=== PATIENT | female | born 1965 | race Caucasian/White ===

== ENCOUNTER → 2018-02-19 | Outpatient (CLI) | payer SELFPAY ==
[~2018-02-19] MED LIST: GADOBUTROL 15 MMOL/15 ML (GADAVIST) VIAL IV ONE
[2018-02-19 12:28] LABS: BUN/CREATININE RATIO 7; CREATININE SERUM 0.87 MG/DL (0.60-1.30); GFR ESTIMATED > 60
--- NOTE | 2018-02-19 14:03 | Diagnostic Imaging Report ---
PROCEDURE: MRI lumbar spine. TECHNIQUE: Multiplanar, multisequence MRI of the lumbar spine was performed without contrast. INDICATION: Fall with left-sided low back pain and injury. No prior studies are available for comparison. FINDINGS: Curvature and alignment of the lumbar spine is normal. Vertebral body heights are maintained. The marrow signal intensity is unremarkable. No fracture or geographic marrow lesion is seen. There is fairly normal height and hydration to the lumbar discs apart from some desiccation at L5-S1 compatible with degenerative disc disease. The conus is unremarkable at the L1-L2 level. T12-L1: No central canal or neuroforaminal stenosis is identified. L1-L2: There is wide-based midline disc bulge; however, no resultant central canal stenosis is seen. The neuroforamina are widely patent. L2-L3: Unremarkable. L3-L4: Unremarkable. L4-L5: There are degenerative facet changes and ligamentous thickening noted. Central canal remains patent. No neuroforaminal stenosis is seen. L5-S1: There is a wide-based midline disc bulge. No significant central canal stenosis is seen, however. Neuroforamina are patent bilaterally. There may be very mild narrowing of the lateral recesses bilaterally. Paraspinous tissues are unremarkable. IMPRESSION: Lower lumbar spondylosis and facet arthropathy, as described. There is disc bulging at multiple levels. No significant central canal stenosis is seen. There does appear to be some mild lateral recess narrowing bilaterally at L5-S1. Dictated by: Dictated on workstation # [id number]
--- NOTE | 2018-02-19 14:24 | Diagnostic Imaging Report ---
PROCEDURE: MR imaging of the brain with and without contrast. TECHNIQUE: Multiplanar, multisequence MR imaging of the brain was performed with and without contrast. INDICATION: Severe headache and dizziness. No prior studies are available for comparison. FINDINGS: The ventricles and sulci are within normal limits. No acute intra-axial or extra-axial hemorrhage is detected. No mass effect or midline shift is detected. No diffusion restriction is identified to suggest acute ischemia. The normal expected flow voids within the carotid siphons are seen. No abnormal enhancement is identified. The corpus callosum is unremarkable. The sella and parasellar structures are unremarkable. IMPRESSION: Unremarkable pre and postcontrast MRI of the brain. Dictated by: Dictated on workstation # [id number]
== END ==
LOC: RAD 11:58
PROVIDERS: ATTEND Family Medicine
DX: M48.07 Spinal stenosis, lumbosacral region (principal); M47.816 Spondylosis without myelopathy or radiculopathy, lumbar region; M51.26 Other intervertebral disc displacement, lumbar region; M51.27 Other intervertebral disc displacement, lumbosacral region; R51 Headache; R26.89 Other abnormalities of gait and mobility; W19.XXXA Unspecified fall, initial encounter
CPT/HCPCS: 36415; 70553; 72148; 82565; 84520

== ENCOUNTER → 2018-10-04 | Outpatient (CLI) | payer OTHER | LOC: CARD 13:32 | PROVIDERS: ATTEND Internal Medicine Cardiovascular Disease | DX: R07.89 Other chest pain (principal); I10 Essential (primary) hypertension; R42 Dizziness and giddiness; I08.1 Rheumatic disorders of both mitral and tricuspid valves | CPT/HCPCS: 93306 ==

== ENCOUNTER → 2018-10-05 | Outpatient (CLI) | payer OTHER ==
--- NOTE | 2018-10-06 13:04 | Diagnostic Imaging Report ---
INDICATION: Routine screening. COMPARISON: 11/01/2010. TECHNIQUE: 2D and 3D bilateral screening mammography was performed with CAD. FINDINGS: Scattered fibroglandular densities are identified bilaterally. Benign calcifications are identified bilaterally. The circumscribed benign nodule in the upper outer left breast appears stable. No new mass or malignant appearing microcalcifications are seen. The axillae are unremarkable. IMPRESSION: No mammographic features suspicious for malignancy are identified. ACR BI-RADS Category 2: Benign findings. Result letter will be mailed to the patient. Note: At least 10% of breast cancer is not imaged by mammography. Dictated by: Dictated on workstation # [id number]
== END ==
LOC: RAD 09:49
PROVIDERS: ATTEND Family Medicine
DX: Z12.31 Encounter for screening mammogram for malignant neoplasm of breast (principal)
CPT/HCPCS: 77067

== ENCOUNTER → 2018-10-05 | Outpatient (CLI) | payer OTHER ==
--- NOTE | 2018-10-05 15:09 | Diagnostic Imaging Report ---
INDICATION: Osteopenia postmenopausal screening assessment COMPARISON: None FINDINGS: AP Spine L1-L4: [BMD (g/cm2): 1.047] [T-Score: -1.3] [Z-Score: -1.8] [BMD Previous: N/A] [BMD % Change: N/A] LT Hip Neck: [BMD (g/cm2): 0.785] [T-Score: -1.8] [Z-Score: -1.6] LT Hip Total: [BMD (g/cm2):09.17] [T-Score:-0.7] [Z-Score: -1.0] [BMD Previous: N/A] [BMD % Change: N/A] RT Hip Neck: [BMD (g/cm2):0.785] [T-Score:-1.8] [Z-Score:-1.6] RT Hip Total: [BMD (g/cm2):0.863] [T-score:-1.1] [Z-Score:-1.4] [BMD Previous:N/A] [BMD % Change:N/A] *Indicates significant change from prior examination based on 95% confidence level. World Health Organization criteria for BMD interpretation classify patients as Normal (T-score at or above -1.0), Osteopenic (T-score between -1.0 and -2.5) or Osteoporotic (T-score at or below -2.5). LIMITATIONS AND MODIFICATION: None. FRACTURE RISK (FRAX SCORE): The ten year probability of (%): Major Osteoporotic Fracture: [5.5] Hip Fracture: [0.9] IMPRESSION: 1. Osteopenia (Low bone mass). 2. Baseline examination. 3. See below National Osteoporosis Foundation guidelines on when to potentially initiate pharmacologic therapy. Based on the National Osteoporosis Foundation Guidelines, pharmacologic treatment should be initiated in any of the following, unless clinical conditions suggest otherwise: * Any patient with prior fragility fracture of the hip or vertebrae. A spine fracture indicates 5X risk for subsequent spine fracture and 2X risk for subsequent hip fracture. * Osteoporosis (T-score <-2.5). * Postmenopausal women and men age 50 and older with low bone mass/osteopenia (T-score between -1.0 and -2.5) by DXA and 10-year major osteoporotic fracture greater than 20% or a 10-year probability of hip fracture greater than 3%. These fracture risks are supplied above in the FRAX score, if applicable. * Clinician judgement and/or patient preferences may indicate treatment for people with 10-year fracture probabilities above or below these levels. Dictated by: Dictated on workstation # [id number]
== END ==
LOC: RAD 09:44
PROVIDERS: ATTEND Family Medicine
DX: Z13.820 Encounter for screening for osteoporosis (principal); M85.89 Other specified disorders of bone density and structure, multiple sites; Z78.0 Asymptomatic menopausal state
CPT/HCPCS: 77080

== ENCOUNTER → 2021-11-26 | Outpatient (CLI) | payer SELFPAY ==
--- NOTE | 2021-11-26 14:11 | Diagnostic Imaging Report ---
INDICATION: Cough. Time of Exam: 12:00 PM Correlation is made with prior chest 11/06/2015. Finding: The heart size is normal. The pulmonary vascularity is unremarkable. The lungs are clear. No infiltrate, effusion or pneumothorax is detected. Impression: No acute cardiopulmonary process is detected. Dictated by: Dictated on workstation # [id number]
== END ==
LOC: RAD FS 11:52
PROVIDERS: ATTEND Nurse Practitioner Family
DX: R05.3 Chronic cough (principal)
CPT/HCPCS: 71046

== ENCOUNTER 2022-05-10 14:11 | Emergency (ER) | payer SELFPAY ==
[~2022-05-10] VITALS: Ht 154.9 cm; Wt 119.5 kg
[2022-05-10] MEDS ORDERED: LACTATED RINGERS 1,000 ML IV STA (14:39)
[2022-05-10] MEDS ORDERED: MECLIZINE 25 MG (ANTIVERT) TAB PO ONE (14:45)
--- NOTE | 2022-05-10 14:45 | ED Neurological Problem ---
General Chief Complaint: Head/Cervical Problems Stated Complaint: BERNARDO; NEAR SYNCOPE; NAUSEA Source: patient, RN/MD Exam Limitations: no limitations History of Present Illness Date Seen by Provider: May 10, 2022 Time Seen by Provider: 14:14 Initial Comments 56-year-old female with past medical history of hypertension, hyperlipidemia, and tobacco use coming in due to a few seconds of a headache on the left side of her head followed by vertigo-like symptoms that lasted roughly 45 minutes. Has been ambulatory even during those symptoms. Went to an urgent care and was referred here. Denies any ringing in her ears or recent illness. Denies having the symptoms before. Denies any chest pain, palpitations, shortness of breath, fever, nausea, vomiting, current headache, neck stiffness, weakness, numbness, current vision changes, dysuria, diarrhea, or any other concerns. She states she feels like her tongue is dry and she feels dehydrated otherwise. Denies any prior history of TIA or stroke. Denies any cardiac history or history of A. fib. Of note, she states she has bad sciatica, and seeing specialist soon. She states she took a couple CBD Gummies a couple days ago to help with this Allergies and Home Medications Allergies Coded Allergies: No Known Drug Allergies (Unverified , 02/19/18) Patient Home Medication List Home Medication List Reviewed: Yes Review of Systems Review of Systems Constitutional: No fever Eyes: Other (Vertigo) Ears, Nose, Mouth, Throat: no symptoms reported Respiratory: no symptoms reported Cardiovascular: no symptoms reported Gastrointestinal: no symptoms reported Genitourinary: no symptoms reported Musculoskeletal: no symptoms reported Skin: no symptoms reported Psychiatric/Neurological: See HPI Endocrine: No Symptoms Reported Hematologic/Lymphatic: No Symptoms Reported All Other Systems Reviewed Negative Unless Noted: Yes Past Xwkpigs-Nbbbng-Gysrbd Hx Patient Social History Tobacco Use?: Yes Tobacco type used: Cigarettes Past Medical History Surgeries: Yes Gallbladder, Hysterectomy Physical Exam Vital Signs Vital Signs - First Documented 05/10/22 14:36 Temp 36.7 Pulse 96 Resp 15 B/P (MAP) 150/90 (110) O2 Delivery Room Air Capillary Refill : Height, Weight, BMI Height: '" Weight: lbs. oz. kg; BMI Method: General Appearance: WD/WN, no apparent distress HEENT: PERRL/EOMI, pharynx normal, other (Lateral gaze nystagmus when looking left which is fatigable. 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, no motor/sensory deficits, alert, normal mood/affect, oriented x 3 Crainal Nerves: normal hearing, normal speech, PERRL, other (Normal gait, normal vslyzm-un-egjx, normal sfuj-om-quzz, normal speech and hearing, test of skew was normal, head impulse test was normal) Coordination/Gait: normal finger to nose, normal gait Motor/Sensory: no motor deficit, no sensory deficit, no pronator drift Skin: normal color, warm/dry Lymphatic: no adenopathy Stroke Onset of Symptoms Date of Onset of Symptoms: May 10, 2022 Time of Symptom Onset: 13:20 Onset of Symptoms: Yes NIH Stroke Scale Assessment Select: Initial Level of Consciousness: 0=Alert (0), Level of Consciousness- Questions: 0=Answers both month/age (0), LOC Commands: 0=Performs both tasks (0), Gaze: Normal (0), Visual Samuels: 0=No visual loss (0), Facial Movement (Facial Paresis): 0=Normal symmetrical mnt (0), Motor Function-Arms Right: 0=No drift (0), Motor Function-Arms Left: 0=No drift (0), Motor Function-Legs Right: 0=No drift (0), Motor Function-Legs Left: 0=No drift (0), Limb Ataxia: 0=Absent (0), Sensory: 0=Normal:no loss (0), Best Language: 0=No aphasia (0), Dysarthria: 0=Normal (0), Extinction & Inattention: 0=No abnormality (0), Total: 0 Stroke Thrombolytic Exclusion TPA Contraindication: Yes IV - TPa Received IV - TPa Procedure Performed?: No Progress/Results/Core Measures Results/Orders Lab Results Laboratory Tests Test 05/10/22 14:49 Range/Units White Blood Count 10.6 4.3-11.0 10^3/uL Red Blood Count 3.96 3.80-5.11 10^6/uL Hemoglobin 12.3 11.5-16.0 g/dL Hematocrit 37 35-52 % Mean Corpuscular Volume 93 80-99 fL Mean Corpuscular Hemoglobin 31 25-34 pg Mean Corpuscular Hemoglobin Concent 33 32-36 g/dL Red Cell Distribution Width 12.4 10.0-14.5 % Platelet Count 213 130-400 10^3/uL Mean Platelet Volume 9.5 9.0-12.2 fL Immature Granulocyte % (Auto) 0 % Neutrophils (%) (Auto) 63 42-75 % Lymphocytes (%) (Auto) 28 12-44 % Monocytes (%) (Auto) 6 0-12 % Eosinophils (%) (Auto) 2 0-10 % Basophils (%) (Auto) 0 0-10 % Neutrophils # (Auto) 6.6 1.8-7.8 10^3/uL Lymphocytes # (Auto) 3.0 1.0-4.0 10^3/uL Monocytes # (Auto) 0.6 0.0-1.0 10^3/uL Eosinophils # (Auto) 0.3 0.0-0.3 10^3/uL Basophils # (Auto) 0.0 0.0-0.1 10^3/uL Immature Granulocyte # (Auto) 0.0 0.0-0.1 10^3/uL Erythrocyte Sedimentation Rate 46 H 0-30 MM/HR Prothrombin Time 12.2 12.2-14.7 SEC INR Comment 0.9 0.8-1.4 Activated Partial Thromboplast Time 25 24-35 SEC Sodium Level 137 135-145 MMOL/L Potassium Level 3.7 3.6-5.0 MMOL/L Chloride Level 102 98-107 MMOL/L Carbon Dioxide Level 23 21-32 MMOL/L Anion Gap 12 5-14 MMOL/L Blood Urea Nitrogen 7 7-18 MG/DL Creatinine 0.82 0.60-1.30 MG/DL Estimat Glomerular Filtration Rate 84 BUN/Creatinine Ratio 9 Glucose Level 148 H 70-105 MG/DL Calcium Level 9.0 8.5-10.1 MG/DL Corrected Calcium 9.3 8.5-10.1 MG/DL Magnesium Level 1.8 1.6-2.4 MG/DL Total Bilirubin 0.4 0.1-1.0 MG/DL Aspartate Amino Transf (AST/SGOT) 21 5-34 U/L Alanine Aminotransferase (ALT/SGPT) 22 0-55 U/L Alkaline Phosphatase 136 40-136 U/L Troponin I < 0.30 <0.30 NG/ML Total Protein 6.7 6.4-8.2 GM/DL Albumin 3.6 3.2-4.5 GM/DL My Orders Orders - KASI IRBY MD Ct Head Wo (05/10/22 14:39) Cbc With Automated Diff (05/10/22 14:39) Comprehensive Metabolic Panel (05/10/22 14:39) Erythrocyte Sedimentation Rate (05/10/22 14:39) Magnesium (05/10/22 14:39) Protime With Inr (05/10/22 14:39) Partial Thromboplastin Time (05/10/22 14:39) Troponin I Fs (05/10/22 14:39) Ed Iv/Invasive Line Start (05/10/22 14:39) Ekg Tracing (05/10/22 14:39) Monitor-Rhythm Ecg Trace Only (05/10/22 14:39) Lactated Ringers (Lr 1000 Ml Iv Solution (05/10/22 14:39) Meclizine Tablet (Antivert Tablet) (05/10/22 14:45) Medications Given in ED Current Medications Medications Dose Ordered Sig/Mela Route Start Time Stop Time Status Last Admin Dose Admin Meclizine HCl 25 mg ONCE ONCE PO 05/10/22 14:45 05/10/22 14:46 DC 05/10/22 14:56 25 MG Vital Signs/I&O 05/10/22 14:36 Temp 36.7 Pulse 96 Resp 15 B/P (MAP) 150/90 (110) O2 Delivery Room Air Progress Progress Note : Progress Note 56-year-old female with above history coming in due to dizziness. ABCs were intact and vitals were stable on presentation. Physical exam reassuring including a normal neuro exam with an NIH of 0. She is not showing any signs of posterior stroke at this time. Symptoms down the vertiginous and they sounded very short in duration. She does look dry on exam. An IV was placed and she was given a bolus of IV fluids as well as meclizine. CT head with no acute changes. Labs essentially unremarkable as well. Patient is at her baseline and I believe stable for discharge with outpatient follow-up. She was sent home with strict return precautions. Initial ECG Impression Date: May 10, 2022 Initial ECG Impression Time: 14:48 Initial ECG Rate: 89 Initial ECG Rhythm: Normal Sinus Comment Narrow QRS, normal axis, no significant ST changes or TWI Diagnostic Imaging Diagonstic Imaging: CT (head) Comments [facility] [place] [place], [place] NAME: ROSHNI CARLTON [facility] REC#: [id number] PT STATUS: REG ER : 1965 PHYSICIAN: KASI IRBY MD ADMIT DATE: 05/10/22/ER FS Draft Date of Exam:05/10/22 CT HEAD WO Clinical indication: Patient with pain in forehead, dizziness and blurred vision x 10 minutes. Exam: Axial CT scan of the brain without IV contrast with coronal and sagittal reformatted images. Auto Exposure Controls were utilized during the CT exam to meet ALARA standards for radiation dose reduction. Comparison: MRI of the brain with and without contrast dated 02/19/2018. Findings: There is no evidence of acute cerebral infarct, intracranial hemorrhage, or gross mass effect. The brain parenchymal volume appears appropriate for patient's age. There is normal paiz-white matter distinction. There is no significant midline shift or herniation. There is no evidence of hydrocephalus. The basal cisterns are unremarkable. The skull, extracranial soft tissue, and orbits are unremarkable. The paranasal sinuses are unremarkable. Temporal bones show no significant abnormality. Impression: There is no evidence of acute intracranial process. Dictated on workstation # [id number] Dict: 05/10/22 1511 Trans: 05/10/22 1517 [facility] [id number] Interpreted by: FRANCISCO SAPP MD Electronically signed by: Departure Impression Primary Impression: Vertigo Disposition: 01 HOME, SELF-CARE Condition: Stable Departure-Patient Inst. Decision time for Depature: 15:45 Referrals: JOHNATHAN SOSA MD (PCP) Primary Care Physician Patient Instructions: Dizziness, Adult ED Add. Discharge Instructions: The symptoms you are having are consistent with vertigo. Try the medicine that we are prescribing and drink plenty of fluids when you have these symptoms. If you ever have weakness we cannot move 1 side of her body, numbness or you cannot feel 1 side of your body, then I would want you to follow back up in the ER as soon as possible. Otherwise, please follow-up with your regular doctor to discuss the symptoms you had today. Scripts Meclizine HCl (Meclizine HCl) 25 Mg Tablet 25 MG PO BID PRN for VERTIGO for 14 Days, #28 TAB Prov: KASI IRBY MD 05/10/22 Work/School Note: Work Release Form Date Seen in the Emergency Department: May 10, 2022 Return to Work: May 11, 2022 Restrictions: No Restrictions KASI IRBY MD May 10, 2022 14:45
[2022-05-10 15:00] VITALS: BP 146/84
[2022-05-10 15:00] LABS: BASOPHILS % (AUTO) 0 % (0-10); EOSINOPHILS # (AUTO) 0.3 10^3/uL (0.0-0.3); EOSINOPHILS % (AUTO) 2 % (0-10); HEMATOCRIT 37 % (35-52); HEMOGLOBIN 12.3 g/dL (11.5-16.0); LYMPHOCYTES % (AUTO) 28 % (12-44); MEAN CORPUSCULAR HEMOGLOBIN 31 pg (25-34); MEAN CORPUSCULAR HGB CONC 33 g/dL (32-36); MEAN CORPUSCULAR VOLUME 93 fL (80-99); MEAN PLATELET VOLUME 9.5 fL (9.0-12.2); MONOCYTES # (AUTO) 0.6 10^3/uL (0.0-1.0); MONOCYTES % (AUTO) 6 % (0-12); NEUTROPHILS # (AUTO) 6.6 10^3/uL (1.8-7.8); NEUTROPHILS % (AUTO) 63 % (42-75); PLATELET COUNT 213 10^3/uL (130-400); WHITE BLOOD COUNT 10.6 10^3/uL (4.3-11.0)
[2022-05-10 15:12] LABS: INR 0.9 (0.8-1.4); PROTHROMBIN TIME PATIENT 12.2 SEC (12.2-14.7)
[2022-05-10 15:19] LABS: CHLORIDE 102 MMOL/L (98-107); ERYTHROCYTE SEDIMENTATION RATE 46 MM/HR (0-30); POTASSIUM 3.7 MMOL/L (3.6-5.0); SODIUM 137 MMOL/L (135-145)
--- NOTE | 2022-05-10 15:19 | Diagnostic Imaging Report ---
Clinical indication: Patient with pain in forehead, dizziness and blurred vision x 10 minutes. Exam: Axial CT scan of the brain without IV contrast with coronal and sagittal reformatted images. Auto Exposure Controls were utilized during the CT exam to meet ALARA standards for radiation dose reduction. Comparison: MRI of the brain with and without contrast dated 02/19/2018. Findings: There is no evidence of acute cerebral infarct, intracranial hemorrhage, or gross mass effect. The brain parenchymal volume appears appropriate for patient's age. There is normal paiz-white matter distinction. There is no significant midline shift or herniation. There is no evidence of hydrocephalus. The basal cisterns are unremarkable. The skull, extracranial soft tissue, and orbits are unremarkable. The paranasal sinuses are unremarkable. Temporal bones show no significant abnormality. Impression: There is no evidence of acute intracranial process. Dictated by: Dictated on workstation # [id number]
[2022-05-10 15:20] LABS: ALANINE AMINOTRANSFERASE 22 U/L (0-55); ALBUMIN 3.6 GM/DL (3.2-4.5); ALKALINE PHOSPHATASE 136 U/L (40-136); BILIRUBIN,TOTAL 0.4 MG/DL (0.1-1.0); BUN/CREATININE RATIO 9; CARBON DIOXIDE 23 MMOL/L (21-32); CREATININE SERUM 0.82 MG/DL (0.60-1.30); GFR ESTIMATED 84; GLUCOSE 148 MG/DL (70-105); MAGNESIUM 1.8 MG/DL (1.6-2.4); TOTAL PROTEIN 6.7 GM/DL (6.4-8.2)
[2022-05-10] MEDS ORDERED: MECL-149 PO (15:40)
== END 2022-05-10 15:50 | disposition home or self-care (01) ==
LOC: EDUNIT# 14:11 → ER FS 14:12
DX: R42 Dizziness and giddiness (principal); Z28.310 Unvaccinated for COVID-19
CPT/HCPCS: 36415; 70450; 80053; 83735; 84484; 85025; 85610; 85652; 85730; 93005; 93041

== ENCOUNTER 2023-02-11 06:25 | Outpatient (CLI) | payer OTHER ==
[~2023-02-11] VITALS: Ht 154.9 cm; Wt 95.7 kg
[~2023-02-11 06:25] MED LIST changes: -GADOBUTROL 15 MMOL/15 ML (GADAVIST) VIAL IV ONE; +MECL-149 PO
[2023-02-11] MEDS ORDERED: BUDE10.2 IH (17:48)
[2023-02-11] MEDS ORDERED: DULO60CA7 PO (17:48)
[2023-02-11] MEDS ORDERED: LIRA0.6P SQ (17:48)
[2023-02-11] MEDS ORDERED: ATOR20TA66 PO (17:48)
[2023-02-11] MEDS ORDERED: QUET100T PO (17:48)
[2023-02-11] MEDS ORDERED: LOSA100T58 PO (17:48)
[2023-02-11] MEDS ORDERED: TRM50T PO (17:48)
[2023-02-11] MEDS ORDERED: ACHD5005 PO (17:48)
[2023-02-11] MEDS ORDERED: TIZA4CAP8 PO (17:48)
[2023-02-11] MEDS ORDERED: RT-ALBUINH INH (17:48)
[2023-02-11] MEDS ORDERED: POLY17PO6 PO (17:48)
[2023-02-11] MEDS ORDERED: MELO10CA3 PO (17:48)
[2023-02-11] MEDS ORDERED: TRZ50T PO (17:48)
== END 2023-02-11 17:59 | disposition home or self-care (01) ==
LOC: PREOP 06:25
PROVIDERS: ATTEND Surgery
DX: Z01.818 Encounter for other preprocedural examination (principal)

== ENCOUNTER 2023-02-16 09:33 | Day surgery (SDC) | payer OTHER ==
[~2023-02-16] VITALS: Ht 154.9 cm; Wt 95.7 kg
[~2023-02-16 09:33] MED LIST changes: +ACHD5005 PO; +ATOR20TA66 PO; +BUDE10.2 IH; +DULO60CA7 PO; +LIRA0.6P SQ; +LOSA100T58 PO; +MELO10CA3 PO; +POLY17PO6 PO; +QUET100T PO; +RT-ALBUINH INH; +TIZA4CAP8 PO; +TRM50T PO; +TRZ50T PO
[2023-02-16] MEDS ORDERED: LACTATED RINGERS 1,000 ML IV STA (09:43)
[2023-02-16] MEDS ORDERED: HURRICAINE EXT TUBE (BENZOCAINE) XX PRN (09:45)
--- NOTE | 2023-02-16 10:16 | Progress Note-Pre Operative ---
Pre-Operative Progress Note Date of Available H&P: Feb 03, 2023 Date H&P Reviewed: Feb 16, 2023 Time H&P Reviewed: 10:14 History & Physical: H&P Reviewed, Patient Examed, No changes noted Pre-Operative Diagnosis: Epigastric pain, Screening JOB LIMA DO Feb 16, 2023 10:16
[2023-02-16 10:18] VITALS: BP 111/84
[2023-02-16] MEDS ORDERED: PROPOFOL INJECTION 50 ML IV ONE (11:41)
[2023-02-16] MEDS ORDERED: MIDAZOLAM INJ 2 MG/2 ML VIAL ONE (11:41)
--- NOTE | 2023-02-16 12:24 | Progress Note-Post Operative ---
Post-Operative Progess Note Surgeon (s)/Radio Operator Ground (s) Surgeon JOB LIMA DO Radio Operator Ground: Kenn Ostnewjason, MSIII Pre-Operative Diagnosis Epigastric pain, Screening Post-Operative Diagnosis Gastritis with bleed Hiatal hernia Polyps Diverticula int hemorrhoids melanosis coli Procedure & Operative Findings Date of Procedure 02/16/23 Procedure Performed/Findings EGD with biopsy Colonoscopy with snare polypectomy PROCEDURE NOTE: After informed consent was obtained, the patient was brought to the endoscopy suite, placed in bed in left lateral decubitus position. She was administered IV sedation by the HANDWRITING EXPERT who then monitored vitals the entire time, heart rate, blood pressure and pulse ox and the scope was inserted down the mouth through the esophagus into the stomach. On the way down, noted some mild esophagitis, took a picture, pushed into the stomach and noted small blood clots and gastritis. Pushed past the antrum into the duodenum; duodenum looked good. Pulled back and did a biopsy of the antrum, a biopsy of the body and then retro- flexed the scope. I saw hiatal hernia, took a picture of this and then pulled the scope into the GE junction and then did a biopsy of the GE junction. Pushed the scope back into the stomach, suctioned all the air out of the stomach. At this point pulled the scope up the esophagus and out the mouth. Switched camera, switched gloves, went down below and started the colonoscopy. Pushed all the way to about 150 cm and pushed into the cecum, took a picture of appendiceal orifice and noted the ileocecal valve. On the way in I noted some diverticula. Then slowly withdrew the scope insufflating to look circumferentially at the choudhury starting in the cecum, up the ascending colon to the hepatic flexure, then down the transverse colon to the splenic flexure, into the descending colon and down into the sigmoid. Through here I saw what looked like melanosis coli and then into the rectum, where I found a polyp and removed it with the snare. Finally, into the rectal vault and retroflexed the scope; took a picture of the internal hemorrhoids. The patient tolerated the procedure and she recovered in the endoscopy suite. Recommended for repeat colonoscopy in 5 years Anesthesia Type IV sedation by HANDWRITING EXPERT Estimated Blood Loss Estimated blood loss (mL): scant Specimens/Packing Specimens Removed antral bx body of stomach bx GE jxn bx Rectal polyp JOB LIMA DO Feb 16, 2023 12:24
[2023-02-16 12:25] VITALS: BP 132/69
--- NOTE | 2023-02-16 12:25 | Endoscopy Discharge Instruct ---
Endo Procedure/Findings Findings 1.: Gastritis (with bleed) 2.: Hiatal Hernia 3.: Polyp 4.: Diverticulosis, Internal Hemorrhoids Discharge Instructions - Activity: You might feel a little sleepy until tomorrow. This is due to the medicine you received to relax you. Until tomorrow, you should: NOT drive a car, operate machinery or power tools. NOT drink any alcoholic beverages. NOT make any important decisions or sign importortant papers. Do not return to work until tomorrow, unless otherwise instructed. Resume previous activities tomorrow. Diet: Start by taking liquids. If you tolerate liquids, advance to solid food. 1.: EGD in 3 years 2.: Colonscopy in 5 years Notify Physician - If you experience excessive bleeding, unusual abdominal pain, fever, or chest pain, contact your doctor immediately. Follow-Up: Other Follow up in my office in one week JOB LIMA DO Feb 16, 2023 12:25
[2023-02-16 12:30] VITALS: BP 134/66
[2023-02-16 13:03] VITALS: BP 134/66
--- NOTE | 2023-02-16 13:05 | Anesthesia-General Post-Op ---
MAC Patient Condition Mental Status/LOC: Same as Preop Cardiovascular: Satisfactory Nausea/Vomiting: Absent Respiratory: Satisfactory Pain: Controlled Complications: Absent Post Op Complications Complications None Follow Up Care/Instructions Patient Instructions None needed. Anesthesiology Discharge Order Discharge Order Patient is doing well, no complaints, stable vital signs, no apparent adverse anesthesia problems. No complications reported per nursing. BILLY BAIRD CRNA Feb 16, 2023 13:05
== END 2023-02-16 13:03 | disposition home or self-care (01) ==
LOC: ENDO 09:33
PROVIDERS: ATTEND Surgery
DX: Z12.11 Encounter for screening for malignant neoplasm of colon (principal); D12.8 Benign neoplasm of rectum; K57.30 Diverticulosis of large intestine without perforation or abscess without bleeding; K64.8 Other hemorrhoids; K63.89 Other specified diseases of intestine; K29.71 Gastritis, unspecified, with bleeding; K44.9 Diaphragmatic hernia without obstruction or gangrene; K20.90 Esophagitis, unspecified without bleeding; K31.89 Other diseases of stomach and duodenum; Z28.310 Unvaccinated for COVID-19; G47.33 Obstructive sleep apnea (adult) (pediatric); F17.210 Nicotine dependence, cigarettes, uncomplicated; E66.9 Obesity, unspecified; Z68.39 Body mass index [BMI] 39.0-39.9, adult

== ENCOUNTER 2023-03-27 08:31 | Emergency (ER) | payer OTHER ==
[~2023-03-27] VITALS: Ht 154.9 cm; Wt 96.6 kg
[~2023-03-27 08:31] MED LIST changes: +ACET-2267 PO; +ALPR0.5T PO; +ALPR0.5T7 PO; +ASPI-1238 PO; +CHOL100048 PO; +CLOP75TA28 PO; +CYAN-41 PO; +ELDE350C PO; +ESTR42.511 VG; +ISOS30TA82 PO; +MELA10TA2 PO; +MELO15TA39 PO; +MTP25TSR PO; +NICO-533 TD; +QUET100T33 PO; +ROSU20TA73 PO; +TIZA-186 PO; +TRAM50TA3 PO
[2023-03-27 08:57] LABS: BASOPHILS % (AUTO) 1 % (0-10); EOSINOPHILS # (AUTO) 0.2 10^3/uL (0.0-0.3); EOSINOPHILS % (AUTO) 3 % (0-10); HEMATOCRIT 36 % (35-52); HEMOGLOBIN 11.7 g/dL (11.5-16.0); LYMPHOCYTES # (AUTO) 2.5 10^3/uL (1.0-4.0); LYMPHOCYTES % (AUTO) 29 % (12-44); MEAN CORPUSCULAR HEMOGLOBIN 31 pg (25-34); MEAN CORPUSCULAR HGB CONC 33 g/dL (32-36); MEAN CORPUSCULAR VOLUME 94 fL (80-99); MEAN PLATELET VOLUME 10.1 fL (9.0-12.2); MONOCYTES # (AUTO) 0.5 10^3/uL (0.0-1.0); MONOCYTES % (AUTO) 6 % (0-12); NEUTROPHILS # (AUTO) 5.3 10^3/uL (1.8-7.8); NEUTROPHILS % (AUTO) 61 % (42-75); PLATELET COUNT 248 10^3/uL (130-400); WHITE BLOOD COUNT 8.6 10^3/uL (4.3-11.0)
[2023-03-27] MEDS ORDERED: LIDOCAINE 2% VISCOUS 15 ML UDC PO ONE (09:00)
[2023-03-27] MEDS ORDERED: ONDANSETRON INJECTION 4 MG/2 ML (SDV) IVP ONE (09:00)
[2023-03-27] MEDS ORDERED: ASPIRIN 81 MG CHEWABLE TABLET PO ONE (09:00)
[2023-03-27] MEDS ORDERED: ANTACID SUSPENSION 30 ML UDC PO ONE (09:00)
[2023-03-27] MEDS ORDERED: LACTATED RINGERS 1,000 ML 1,000 ML IV ONE (09:15)
--- NOTE | 2023-03-27 09:15 | ED Chest Pain ---
General Chief Complaint: Cardiac/General Problems Stated Complaint: SOA/ABD PAIN Nursing Triage Note: Patient c/o Lt. sided chest pain that started last night with shortness of breath, nausea, and epigastric pain. Patient states her epigastric pain is worse today and denies any chest pain currently. Patient denies any vomiting, but states she has had dry heaves. Patient denies any fevers, dizziness, pain into her back or down her Lt. arm. Patient denies anything making her pain worse or better. Patient states she had cardiac stents placed on March 19, 2023. Source: patient, old records Exam Limitations: no limitations History of Present Illness Date Seen by Provider: Mar 27, 2023 Time Seen by Provider: 08:36 Initial Comments This 57-year-old woman presents to the emergency room via private vehicle with complaints of chest pain that started yesterday evening. Pain is in the left chest and radiates into the left arm. She has had associated shortness of breath and some mild cough and congestion which she attributes to "allergies.". She has not identified any alleviating or exacerbating factors. She complains of some epigastric pain as well with tenderness in the epigastric region on exam. She has been afebrile. She has had nausea with some dry heaving. She was recently admitted to [facility] in [place] on March 19 and underwent cardiac cath with a single stent placed as well as angioplasty. She has been on aspirin and Plavix since then. She took aspirin 162 mg this morning but has not yet taken her Plavix. She quit smoking last week. Her primary care provider is Virginia Daveis at [facility] in [place], and Dr. Craig is her primary exploitation analyst. 1006 - Patient later elaborates that the epigastric portion of her pain has actually been present for months. She had EGD and colonoscopy performed with Dr Chano Lima in February. That report was reviewed. Postprocedural diagnoses included gastritis with bleed, hiatal hernia, polyps, diverticuli, internal hemorrhoids, and melanosis coli. Pathology reports were also reviewed. Pathology of the stomach was positive for reactive gastropathy without any H. pylori organisms observed. Polypectomy specimen was a tubular adenoma. Patient states history of remote hiatal hernia repair in 2011. Despite this gastric history, she is not presently on any antiacid therapy. Allergies and Home Medications Allergies Coded Allergies: Penicillins (Unverified Allergy, Unknown, 02/11/23) Sulfa (Sulfonamide Antibiotics) (Unverified Allergy, Unknown, 02/11/23) pregabalin (Unverified Allergy, Unknown, 02/11/23) succinylcholine (Unverified Allergy, Unknown, 02/11/23) Patient Home Medication List Home Medication List Reviewed: Yes Acetaminophen (Tylenol Extra Strength) 500 Mg Tablet, 1,000 MG PO DAILY, (Reported) Entered as Reported by: MIQUEL LAI on 03/20/231125 Albuterol Sulfate (Ventolin Hfa) 1 Puff Puff, 2 PUFF INH Q6H PRN for SHORTNESS OF BREATH, (Reported) Entered as Reported by: SHASHANK QUINONES on 02/11/231747 Alprazolam (Alprazolam) 0.5 Mg Tablet, 0.5 MG PO BID PRN for ANXIETY, (Reported) Entered as Reported by: MIQUEL LAI on 03/20/231125 Aspirin (Aspirin EC) 81 Mg Tablet.dr, 81 MG PO DAILY Prescribed by: Cheryl Hendrickson on 03/21/231128 Budesonide/Formoterol Fumarate (Symbicort 160-4.5 Mcg Inhaler) 160 Mcg-4.5 Mcg/Actuation Hfa.aer.ad, 2 PUFF IH DAILY, (Reported) Entered as Reported by: SHASHANK QUINONES on 02/11/231747 Cholecalciferol (Vitamin D3) (Vitamin D3) 25 Mcg (1000 Unit) Capsule, 25 MCG PO DAILY, (Reported) Entered as Reported by: MIQUEL LAI on 03/20/231125 Clopidogrel Bisulfate (Clopidogrel) 75 Mg Tablet, 75 MG PO DAILY Prescribed by: Cheryl Hendrickson on 03/21/231128 Cyanocobalamin (Vitamin B-12) (Vitamin B-12) 1,000 Mcg Tablet, 1,000 MCG PO DAILY, (Reported) Entered as Reported by: MIQUEL LAI on 03/20/231125 Duloxetine HCl (Cymbalta) 60 Mg Capsule.dr, 120 MG PO DAILY, (Reported) Entered as Reported by: SHASHANK QUINONES on 02/11/231747 Elderberry Fruit (Elderberry) 350 Mg Capsule, 350 MG PO DAILY, (Reported) Entered as Reported by: MIQUEL LAI on 03/20/231125 Estradiol (Estradiol) 0.01 % Cream.appl, 1 GM VG 3X WEEKLY, (Reported) Entered as Reported by: MIQUEL LAI on 03/20/231125 Famotidine (Pepcid) 20 Mg Tablet, 20 MG PO BID Prescribed by: LAURA PRECIADO on 03/27/23 115 Hydrocodone/Acetaminophen (Hydrocodone-Acetamin 5-325 mg) 5 Mg-325 Mg Tablet, 2 EA PO HS, (Reported) Entered as Reported by: SHASHANK QUINONES on 02/11/231747 Isosorbide Mononitrate (Isosorbide Mononitrate ER) 30 Mg Tab.er.24h, 15 MG PO DAILY Prescribed by: Cheryl Hendrickson on 03/21/231128 Liraglutide (Victoza 2-Daniel) 0.6 Mg/0.1 Ml (18 Mg/3 Ml) Pen.injctr, 3 MG SQ DAILY, (Reported) Entered as Reported by: SHASHANK QUINONES on 02/11/231747 Melatonin (Melatonin) 10 Mg Tablet, 10 MG PO HS PRN for SLEEP, (Reported) Entered as Reported by: MIQUEL LAI on 03/20/231125 Meloxicam (Meloxicam) 15 Mg Tablet, 15 MG PO DAILY, (Reported) Entered as Reported by: MIQUEL LAI on 03/20/231125 Metoprolol Succinate (Metoprolol Succinate) 25 Mg Tab.er.24h, 12.5 MG PO DAILY Prescribed by: Cheryl Hendrickson on 03/21/231128 Nicotine (Nicotine Patch) 21-14-7MG Patch.dysq, 14 MG TD DAILY Prescribed by: Cheryl Hendrickson on 03/21/231128 Pantoprazole Sodium (Protonix) 40 Mg Tablet.dr, 40 MG PO DAILY Prescribed by: LAURA PRECIADO on 03/27/23 115 Polyethylene Glycol 3350 (Miralax) 17 Gram Powd.pack, 17 GM PO DAILY, (Reported) Entered as Reported by: SHASHANK QUINONES on 02/11/231747 Quetiapine Fumarate (Quetiapine Fumarate) 100 Mg Tablet, 100 MG PO HS, (Reported) Entered as Reported by: MIQUEL LAI on 03/20/23 112 Rosuvastatin Calcium (Rosuvastatin Calcium) 20 Mg Tablet, 20 MG PO HS Prescribed by: Cheryl Hendrickson on 03/21/23 112 Tizanidine HCl (Tizanidine HCl) 4 Mg Tablet, 8 MG PO HS, (Reported) Entered as Reported by: MIQUEL LAI on 03/20/23 112 Tramadol HCl (Tramadol HCl) 50 Mg Tablet, 100 MG PO DAILY, (Reported) Entered as Reported by: SHASHANK QUINONES on 02/11/23 174 Tramadol HCl (Tramadol HCl) 50 Mg Tablet, 100 MG PO 1300 PRN for PAIN-MODERATE (5-7), (Reported) Entered as Reported by: MIQUEL LAI on 03/20/231125 Trazodone HCl (Trazodone HCl) 50 Mg Tablet, 100 MG PO HS, (Reported) Entered as Reported by: MIQUEL LAI on 03/20/23 112 Discontinued Medications Alprazolam (Xanax) 0.5 Mg Tablet, 0.5 MG PO PRN Discontinued Reason: Duplicate Order Prescribed by: PAMELA STALLINGS on 03/19/23 162 Atorvastatin Calcium (Atorvastatin Calcium) 20 Mg Tablet, 20 MG PO HS, (Reported) Entered as Reported by: SHASHANK QUINONES on 02/11/231747 Losartan Potassium (Losartan Potassium) 100 Mg Tablet, 100 MG PO HS, (Reported) Entered as Reported by: SHASHANK QUINONES on 02/11/231747 Meloxicam, Submicronized (Meloxicam) 10 Mg Capsule, 15 MG PO DAILY Discontinued Reason: Duplicate Order Prescribed by: PAMELA STALLINGS on 03/19/23 162 Quetiapine Fumarate (Seroquel) 100 Mg Tablet, 100 MG PO DAILY, (Reported) Discontinued Reason: Duplicate Order Entered as Reported by: SHASHANK QUINONES on 02/11/231747 Tizanidine HCl (Tizanidine HCl) 4 Mg Capsule, 4 MG PO TID Discontinued Reason: Duplicate Order Prescribed by: PAMELA STALLINGS on 03/19/231622 Trazodone HCl (Trazodone HCl) 50 Mg Tablet, 50-100 MG PO HS Discontinued Reason: Duplicate Order Prescribed by: PAMELA STALLINGS on 9/14/23 1623 Review of Systems Review of Systems Constitutional: no symptoms reported EENTM: No Symptoms Reported Respiratory: See HPI Cardiovascular: See HPI Gastrointestinal: See HPI Genitourinary: No Symptoms Reported Musculoskeletal: no symptoms reported Skin: no symptoms reported Psychiatric/Neurological: No Symptoms Reported Endocrine: No Symptoms Reported Hematologic/Lymphatic: No Symptoms Reported Past Hbzkhag-Nierjw-Opkahr Hx Patient Social History Tobacco Use?: Yes Tobacco type used: Cigarettes Use of E-Cig and/or Vaping dev: No Substance use?: No Alcohol Use?: No Pt feels they are or have been: No Immunizations Up To Date Influenza Vaccine Up-to-Date: No; Not Current First/Initial COVID19 Vaccinat: NO Second COVID19 Vaccination Rodrigo: NO Third COVID19 Vaccination Date: NO Seasonal Allergies Seasonal Allergies: Yes Past Medical History Surgery/Hospitalization HX: Hypertension, hyperlipidemia, COPD, obstructive sleep apnea, fibromyalgia, depression, cholecystectomy, hysterectomy, section Surgeries: Yes (HIATAL HERNIA/HEART CATH) Abdominal (EGD and colonoscopy with bxs 2022), Section, Gallbladder, Hysterectomy Respiratory: Yes (OBSTRUCTIVE SLEEP APNEA) Asthma, Sleep Apnea, COPD Currently Using CPAP: No Cardiac: Yes ("WEEPY MITRAL VALVE") High Cholesterol, Hypertension Neurological: No : No [facility] History: Hysterectomy Genitourinary: No Gastrointestinal: Yes (gastritis, melanosis coli) Gastrointestinal Bleed (bleeding gastritis), Chronic Constipation, Diverticulosis, Hemorrhoids (internal), Polyps, Hiatal Hernia Musculoskeletal: Yes Fibromyalgia Endocrine: Yes (PRE-DIABETIC) Cancer: No Psychosocial: Yes Depression Integumentary: No Blood Disorders: No Family Medical History No Pertinent Family Hx Physical Exam Vital Signs Vital Signs - First Documented 03/27/23 08:34 Temp 36.7 Pulse 79 Resp 16 B/P (MAP) 131/99 (110) O2 Delivery Room Air Capillary Refill : Less Than 3 Seconds Height, Weight, BMI Height: '" Weight: lbs. oz. kg; 40.00 BMI Method: General Appearance: No Apparent Distress, WD/WN, Obese HEENT: PERRL/EOMI, Normal ENT Inspection, Other (Mucous membranes dry) Neck: Normal Inspection; No JVD Respiratory: Chest Non Tender, Lungs Clear, Normal Breath Sounds, No Accessory Muscle Use, No Respiratory Distress Cardiovascular: Regular Rate, Rhythm, No Edema, No Murmur Gastrointestinal: Soft; No Distended; Tenderness (Epigastric) Extremity: Normal Inspection, Non Tender, No Pedal Edema Neurologic/Psychiatric: Alert, Oriented x3, No Motor/Sensory Deficits, Normal Mood/Affect Skin: Normal Color, Warm/Dry Progress/Results/Core Measures Results/Orders Lab Results Laboratory Tests Test 03/27/23 08:48 03/27/23 10:50 Range/Units White Blood Count 8.6 4.3-11.0 10^3/uL Red Blood Count 3.77 L 3.80-5.11 10^6/uL Hemoglobin 11.7 11.5-16.0 g/dL Hematocrit 36 35-52 % Mean Corpuscular Volume 94 80-99 fL Mean Corpuscular Hemoglobin 31 25-34 pg Mean Corpuscular Hemoglobin Concent 33 32-36 g/dL Red Cell Distribution Width 12.1 10.0-14.5 % Platelet Count 248 130-400 10^3/uL Mean Platelet Volume 10.1 9.0-12.2 fL Immature Granulocyte % (Auto) 0 % Neutrophils (%) (Auto) 61 42-75 % Lymphocytes (%) (Auto) 29 12-44 % Monocytes (%) (Auto) 6 0-12 % Eosinophils (%) (Auto) 3 0-10 % Basophils (%) (Auto) 1 0-10 % Neutrophils # (Auto) 5.3 1.8-7.8 10^3/uL Lymphocytes # (Auto) 2.5 1.0-4.0 10^3/uL Monocytes # (Auto) 0.5 0.0-1.0 10^3/uL Eosinophils # (Auto) 0.2 0.0-0.3 10^3/uL Basophils # (Auto) 0.0 0.0-0.1 10^3/uL Immature Granulocyte # (Auto) 0.0 0.0-0.1 10^3/uL Prothrombin Time 12.5 12.2-14.7 SEC INR Comment 0.9 0.8-1.4 Activated Partial Thromboplast Time 24 24-35 SEC Sodium Level 139 135-145 MMOL/L Potassium Level 4.0 3.6-5.0 MMOL/L Chloride Level 103 98-107 MMOL/L Carbon Dioxide Level 26 21-32 MMOL/L Anion Gap 10 5-14 MMOL/L Blood Urea Nitrogen 10 7-18 MG/DL Creatinine 0.95 0.60-1.30 MG/DL Estimat Glomerular Filtration Rate 70 BUN/Creatinine Ratio 11 Glucose Level 103 70-105 MG/DL Calcium Level 10.0 8.5-10.1 MG/DL Corrected Calcium 10.0 8.5-10.1 MG/DL Magnesium Level 1.9 1.6-2.4 MG/DL Total Bilirubin 0.3 0.1-1.0 MG/DL Aspartate Amino Transf (AST/SGOT) 27 5-34 U/L Alanine Aminotransferase (ALT/SGPT) 26 0-55 U/L Alkaline Phosphatase 133 40-136 U/L Myoglobin 27.6 <58.0 NG/ML Troponin I < 0.30 < 0.30 <0.30 NG/ML Total Protein 6.8 6.4-8.2 GM/DL Albumin 4.0 3.2-4.5 GM/DL Lipase 24 8-78 U/L My Orders Orders - LAURA BRUNO MD Cbc And Automated Diff (03/27/23 08:49) Magnesium (03/27/23 08:49) Ekg Tracing (03/27/23 08:49) Comprehensive Metabolic Panel (03/27/23 08:49) Myoglobin Serum (03/27/23 08:49) Protime With Inr (03/27/23 08:49) Partial Thromboplastin Time (03/27/23 08:49) O2 (03/27/23 08:49) Monitor-Rhythm Ecg Trace Only (03/27/23 08:49) Lipid Panel (03/28/23 06:00) Ed Iv/Invasive Line Start (03/27/23 08:49) Lipase (03/27/23 08:49) Troponin I Lianne (03/27/23 08:49) Aspirin Chewable Tablet (Aspirin Chewabl (03/27/23 09:00) Ondansetron Injection (Ondansetron Inj (03/27/23 09:00) Lidocaine 2% Viscous 15 Ml (Xylocaine Vi (03/27/23 09:00) Antacid Suspension (Antacid Suspension (03/27/23 09:00) Covid 19 Inhouse Test (03/27/23 08:52) Influenza A And B By Pcr (03/27/23 08:52) Lactated Ringers 1,000 Ml (Lactated Ring (03/27/23 09:15) Chest 1 View Ap/Pa Only (03/27/23 09:27) Pantoprazole Injection (Pantoprazole Inj (03/27/23 10:00) Troponin I Fs (03/27/23 10:50) Ct Faby Chest/Noang Abd-Pelv W (03/27/23 10:10) Iohexol Injection (Omnipaque 350 Mg/Ml 1 (03/27/23 10:30) Received Contrast (Hold Metformin- Contr (03/27/23 10:30) Ns (Ivpb) 100 Ml (Sodium Chloride 0.9% 1 (03/27/23 10:30) Medications Given in ED Current Medications Medications Dose Ordered Sig/Mela Route Start Time Stop Time Status Last Admin Dose Admin Al Hydrox/Mg Hydrox/Simethicone 30 ml ONCE ONCE PO 03/27/23 09:00 03/27/23 09:01 DC 03/27/23 09:04 30 ML Aspirin 162 mg ONCE ONCE PO 03/27/23 09:00 03/27/23 09:01 DC 03/27/23 09:05 162 MG Iohexol 100 ml ONCE ONCE IV 03/27/23 10:30 03/27/23 10:31 DC 03/27/23 10:38 100 ML Lactated Ringer's 1,000 ml @ 0 mls/hr Q0M ONCE IV 03/27/23 09:15 03/27/23 09:16 DC 03/27/23 09:11 0 MLS/HR Lidocaine HCl 15 ml ONCE ONCE PO 03/27/23 09:00 03/27/23 09:01 DC 03/27/23 09:04 15 ML Ondansetron HCl 8 mg ONCE ONCE IVP 03/27/23 09:00 03/27/23 09:01 DC 03/27/23 09:04 8 MG Pantoprazole 40 mg ONCE ONCE IV 03/27/23 10:00 03/27/23 10:01 DC 03/27/23 10:01 40 MG Sodium Chloride 100 ml ONCE ONCE IV 03/27/23 10:30 03/27/23 10:31 DC 03/27/23 10:38 100 ML Vital Signs/I&O 03/27/23 03/27/23 08:34 09:08 Temp 36.7 Pulse 79 Resp 16 B/P (MAP) 131/99 (110) O2 Delivery Room Air Room Air Blood Pressure Mean: 110 Progress Progress Note #1: Time: 09:16 Progress Note Patient was interviewed and examined upon arrival. EKG demonstrated no ischemic changes by my interpretation. Labs are being processed. Chest x-ray is pending. She has been given the balance of aspirin with an additional 162 mg. Zofran is being given for nausea. A GI cocktail is being given as a trial treatment for her chest and epigastric pain. Swabs for influenza and covid 19 were ordered, but patient declined the tests. Progress Note #2: Time: 10:08 Progress Note Chest, back, and arm pain resolved with GI cocktail treatment. However, the epigastric pain and tenderness persists. She is beader tender on repeat exam. Labs have been reviewed in their entirety and interpreted by me. CBC was unremarkable. Lipase was negative. CMP, magnesium, and troponin were unremarkable. Chest x-ray was unremarkable by my interpretation and demonstrated no adverse changes on radiologist's report as reviewed below. Patient elaborated on her GI history, and endoscopy and pathology reports were reviewed. Protonix is being administered. A 2-hour troponin is pending and will be drawn at 1050. Patient desires further evaluation for her abdominal pain. CT imaging will be obtained. Progress Note #3: Time: 11:40 Progress Note Repeat troponin was negative. CT angiogram of the chest with not angiogram CT of the abdomen pelvis was viewed by me. By my interpretation there were no pathologic findings with the lungs, pulmonary arteries, or aorta. The abdominal CT did not demonstrate any acute surgical findings but she was noted to have significant stomach contents despite not eating anything today. Radiologist's report was reviewed as below. Patient has not been on any antacid therapy. In the short-term, I am suggesting that she receive dual therapy with PPI and H2 shanon. She should follow-up with her primary care provider to determine how to proceed further for treatment of her gastritis. I discussed the situation with Dr. Quach, exploitation analyst on-call for Dr. Craig. From a cardiology perspective he is agreeable to discharge based on the information provided to him. ACS is very unlikely given patient's compliance with her antiplatelet therapy, negative serial troponins for this episode of chest pain that started last night, and normal EKG findings. Additionally, chest pain resolved with GI cocktail. See discharge instructions for further discussion. Initial ECG Impression Date: Mar 27, 2023 Initial ECG Impression Time: 08:43 Initial ECG Rate: 77 Initial ECG Rhythm: Normal Sinus Initial ECG Intervals: Normal Initial ECG Impression: Normal Comment Sinus rhythm with no ST elevation or depression. First-degree AV block with NE interval of 240 ms. Otherwise no abnormal intervals or axis deviation. Diagnostic Imaging Diagonstic Imaging: Xray Plain Films/CT/US/NM/MRI: chest Comments NAME: ROSHNI CARLTON WebNotes [facility] REC#: [id number] PT STATUS: REG ER : 1965 PHYSICIAN: LAURA BRUNO MD ADMIT DATE: 03/27/23/ER FS Draft Date of Exam:03/27/23 CHEST 1 VIEW AP/PA ONLY CLINICAL INDICATION: Patient with chest pain. EXAM: Portable chest x-ray upright view. COMPARISON: Chest x-ray dated 03/18/2023. FINDINGS: Lungs/pleura: Lungs are clear. There is no pneumothorax. There is no pleural effusion. Mediastinum: Unremarkable. Pulmonary vasculature: Unremarkable. Heart: Stable mild cardiomegaly. Bones/extrathoracic soft tissue: Unremarkable. IMPRESSION: 1: There is no radiographic evidence of acute cardiopulmonary process. 2: Stable mild cardiomegaly with no significant pulmonary vascular congestion. Dictated on workstation # [id number] Dict: 03/27/23 0938 Trans: 03/27/23 0941 [id number] Interpreted by: FRANCISCO SAPP MD Diagonstic Imaging: CT Plain Films/CT/US/NM/MRI: chest, abdomen, pelvis Comments NAME: ROSHNI CARLTON WebNotes [facility] REC#: [id number] PT STATUS: REG ER : 1965 PHYSICIAN: LAURA BRUNO MD ADMIT DATE: 03/27/23/ER FS Draft Date of Exam:03/27/23 CT FABY CHEST/NOANG ABD-PELV W INDICATION: Chest pain, abdominal pain, SOA CTA chest, abdomen and pelvis Thin axial sections through the chest, abdomen and pelvis are obtained following intravenous contrast bolus. Multiplanar MIP images were reconstructed and reviewed. All CT scans use one or more of the following dose optimizing techniques: automated exposure control, MA and/or KvP adjustment based on patient size and exam type or iterative reconstruction. COMPARISON: None. FINDINGS: CTA chest: No abnormal intraluminal filling defect is seen within the pulmonary arteries to the first subsegmental division. Thoracic aorta is normal in course and caliber. By NASCET criteria, there is no focal significant stenosis. There is no evidence of dissection nor aneurysm. Heart size is within normal limits. There is no large pericardial effusion. No pathologically enlarged or morphologically abnormal adenopathy is seen within the mediastinum, raymon, nor axilla. Lungs are clear. There is no focal consolidation, large effusion, nor pneumothorax. No suspicious pulmonary nodules or masses are seen. Osseous structures show age-related degenerative changes. No lytic or blastic bony lesions are seen. CT ABDOMEN: Normal appendix is identified. Small bowel loops are nondilated. Kidneys, adrenal glands, spleen, pancreas, and liver have a normal CT appearance. There is no loculated fluid collection, free fluid, nor free air. No abnormal adenopathy is seen. Osseous structures show no acute abnormalities. CT PELVIS: Urinary bladder is grossly unremarkable. No calculi are seen within the urinary bladder. There is no loculated fluid collection, free fluid, or free air. No abnormal adenopathy is seen. Osseous structures show no acute abnormalities. IMPRESSION: 1. No acute vascular abnormality of the chest. 2. No other acute abnormality is seen within the chest, abdomen, or pelvis. Dictated on workstation # [id number] Dict: 03/27/23 1047 Trans: 03/27/23 1059 [id number] Interpreted by: LYUDMILA LESTER MD Departure Impression Primary Impression: Chest pain Qualified Codes: R07.9 - Chest pain, unspecified Additional Impressions: Epigastric pain Gastritis Qualified Codes: K29.70 - Gastritis, unspecified, without bleeding History of coronary artery disease Disposition: 01 HOME, SELF-CARE Condition: Improved Departure-Patient Inst. Decision time for Depature: 11:44 Referrals: VIRGINIA DAVIES APRN (PCP/Family) Primary Care Physician Patient Instructions: Acid Reflux and GERD in Adults (DC), Chest Pain, Gastritis Add. Discharge Instructions: Adhere to a noncarbonated clear liquid diet for the remainder of today to allow your GI tract to rest. Start dual antiplatelet therapy with Pepcid (famotidine) and Protonix (pantoprazole) as prescribed. Avoid the following: Eating large meals, eating close to bedtime, caffeine, carbonation, chocolate, citrus fruits and juices, tomato products, alcohol, tobacco, spicy foods, fatty/greasy foods, mints, NSAID medications such as ibuprofen or naproxen, and anything else you know irritate your stomach. Sleeping with your head and shoulders elevated will help with gravity work in your favor to prevent acid reflux. Take your medications with food or milk to help protect your stomach. Follow-up with Dr. Lima as well if you continue to have upper abdominal pain after following these instructions for 2 or 3 weeks. Your stomach appeared rather full on the CT scan despite not eating today. This may suggest slow transit of stomach contents through your GI tract. Discussed this with your primary care provider. In general, eat small meals, drink plenty of water, and chew your food thoroughly. Use stool softeners such as Colace or MiraLAX for constipation or prevention of constipation with your pain medication use. Follow-up with Dr. Craig and your primary care provider soon as possible. Please call today or Thursday to schedule the appointments. Return to the emergency room if you have worsening symptoms despite following these instructions, especially if you have recurrent episodes of chest pain. Congratulations on quitting smoking! This is a major step in improving your overall health. Please seek assistance from your primary care provider if you need further help in staying off tobacco or other nicotine products. All discharge instructions reviewed with patient and/or family. Voiced understanding. Scripts Pantoprazole Sodium (Protonix) 40 Mg Tablet. 40 MG PO DAILY, #30 TAB Prov: LAURA BRUNO MD 03/27/23 Famotidine (Pepcid) 20 Mg Tablet 20 MG PO BID, #60 TAB Prov: LAURA BRUNO MD 03/27/23 Copy Copies To 1: SIMÓN CRAIG MD Copies To 2: [facility]/K; JOB LIMA JOSHUA T MD Mar 27, 2023 09:15
[2023-03-27 09:17] LABS: INR 0.9 (0.8-1.4); PROTHROMBIN TIME PATIENT 12.5 SEC (12.2-14.7)
[2023-03-27 09:20] LABS: CARBON DIOXIDE 26 MMOL/L (21-32)
[2023-03-27 09:21] LABS: ALANINE AMINOTRANSFERASE 26 U/L (0-55); ALKALINE PHOSPHATASE 133 U/L (40-136); BILIRUBIN,TOTAL 0.3 MG/DL (0.1-1.0); BUN/CREATININE RATIO 11; CREATININE SERUM 0.95 MG/DL (0.60-1.30); GFR ESTIMATED 70; GLUCOSE 103 MG/DL (70-105); LIPASE 24 U/L (8-78); MAGNESIUM 1.9 MG/DL (1.6-2.4); TOTAL PROTEIN 6.8 GM/DL (6.4-8.2)
[2023-03-27 09:25] LABS: CHLORIDE 103 MMOL/L (98-107); SODIUM 139 MMOL/L (135-145)
--- NOTE | 2023-03-27 09:41 | Diagnostic Imaging Report ---
CLINICAL INDICATION: Patient with chest pain. EXAM: Portable chest x-ray upright view. COMPARISON: Chest x-ray dated 03/18/2023. FINDINGS: Lungs/pleura: Lungs are clear. There is no pneumothorax. There is no pleural effusion. Mediastinum: Unremarkable. Pulmonary vasculature: Unremarkable. Heart: Stable mild cardiomegaly. Bones/extrathoracic soft tissue: Unremarkable. IMPRESSION: 1: There is no radiographic evidence of acute cardiopulmonary process. 2: Stable mild cardiomegaly with no significant pulmonary vascular congestion. Dictated by: Dictated on workstation # [id number]
[2023-03-27] MEDS ORDERED: PANTOPRAZOLE INJECTION 40 MG VIAL IV ONE (10:00)
[2023-03-27] MEDS ORDERED: IOHEXOL 350 MG/ML 100 ML (OMNIPAQUE 350) VIAL IV ONE (10:30)
[2023-03-27] MEDS ORDERED: HOLD METFORMIN - RECEIVED CONTRAST 20 ML VIAL IV SCH (10:30)
[2023-03-27] MEDS ORDERED: NS 100 ML (IVPB) BAG IV ONE (10:30)
--- NOTE | 2023-03-27 11:00 | Diagnostic Imaging Report ---
INDICATION: Chest pain, abdominal pain, SOA CTA chest, abdomen and pelvis Thin axial sections through the chest, abdomen and pelvis are obtained following intravenous contrast bolus. Multiplanar MIP images were reconstructed and reviewed. All CT scans use one or more of the following dose optimizing techniques: automated exposure control, MA and/or KvP adjustment based on patient size and exam type or iterative reconstruction. COMPARISON: None. FINDINGS: CTA chest: No abnormal intraluminal filling defect is seen within the pulmonary arteries to the first subsegmental division. Thoracic aorta is normal in course and caliber. By NASCET criteria, there is no focal significant stenosis. There is no evidence of dissection nor aneurysm. Heart size is within normal limits. There is no large pericardial effusion. No pathologically enlarged or morphologically abnormal adenopathy is seen within the mediastinum, raymon, nor axilla. Lungs are clear. There is no focal consolidation, large effusion, nor pneumothorax. No suspicious pulmonary nodules or masses are seen. Osseous structures show age-related degenerative changes. No lytic or blastic bony lesions are seen. CT ABDOMEN: Normal appendix is identified. Small bowel loops are nondilated. Kidneys, adrenal glands, spleen, pancreas, and liver have a normal CT appearance. There is no loculated fluid collection, free fluid, nor free air. No abnormal adenopathy is seen. Osseous structures show no acute abnormalities. CT PELVIS: Urinary bladder is grossly unremarkable. No calculi are seen within the urinary bladder. There is no loculated fluid collection, free fluid, or free air. No abnormal adenopathy is seen. Osseous structures show no acute abnormalities. IMPRESSION: 1. No acute vascular abnormality of the chest. 2. No other acute abnormality is seen within the chest, abdomen, or pelvis. Dictated by: Dictated on workstation # [id number]
[2023-03-27] MEDS ORDERED: FAMO-119 PO (11:50)
[2023-03-27] MEDS ORDERED: PANT40TA2 PO (11:50)
[2023-03-27 12:06] VITALS: BP 144/84
== END 2023-03-27 12:00 | disposition home or self-care (01) ==
LOC: EDUNIT# 08:31 → ER FS 08:34
DX: K29.70 Gastritis, unspecified, without bleeding (principal); I44.0 Atrioventricular block, first degree; E66.9 Obesity, unspecified; F17.210 Nicotine dependence, cigarettes, uncomplicated; Z86.79 Personal history of other diseases of the circulatory system; Z95.5 Presence of coronary angioplasty implant and graft; Z90.49 Acquired absence of other specified parts of digestive tract; Z68.41 Body mass index [BMI] 40.0-44.9, adult; Z28.310 Unvaccinated for COVID-19
CPT/HCPCS: 36415; 71045; 71275; 74177; 80053; 83690; 83735; 83874; 84484; 85025; 85610; 85730; 93005; 93041; Q9967

== ENCOUNTER 2023-05-20 19:06 | Emergency (ER) | payer OTHER ==
[~2023-05-20 19:06] MED LIST changes: +FAMO-119 PO; -MECL-149 PO; +MECL-291 PO; +PANT40TA2 PO
[2023-05-20 19:21] LABS: BASOPHILS % (AUTO) 0 % (0-10); EOSINOPHILS # (AUTO) 0.3 10^3/uL (0.0-0.3); EOSINOPHILS % (AUTO) 3 % (0-10); HEMATOCRIT 36 % (35-52); HEMOGLOBIN 11.5 g/dL (11.5-16.0); LYMPHOCYTES # (AUTO) 3.3 10^3/uL (1.0-4.0); LYMPHOCYTES % (AUTO) 33 % (12-44); MEAN CORPUSCULAR HEMOGLOBIN 31 pg (25-34); MEAN CORPUSCULAR HGB CONC 32 g/dL (32-36); MEAN CORPUSCULAR VOLUME 96 fL (80-99); MEAN PLATELET VOLUME 9.7 fL (9.0-12.2); MONOCYTES # (AUTO) 0.7 10^3/uL (0.0-1.0); MONOCYTES % (AUTO) 7 % (0-12); NEUTROPHILS # (AUTO) 5.5 10^3/uL (1.8-7.8); NEUTROPHILS % (AUTO) 56 % (42-75); PLATELET COUNT 220 10^3/uL (130-400); WHITE BLOOD COUNT 9.8 10^3/uL (4.3-11.0)
--- NOTE | 2023-05-20 19:28 | ED Chest Pain ---
General Chief Complaint: Chest Pain Stated Complaint: CHEST PAIN, LT SIDE JAW PAIN, SOB, NAUSEA Nursing Triage Note: PT AMB TO RM 8 WITH SPOUSE WITH C/O CP SINCE 1700 THIS EVENING. PT HAS KS 2 MO AGO. PT ALSO C/O NAUSEA AND SOB WITH THE CP Source: patient, old records Exam Limitations: no limitations History of Present Illness Date Seen by Provider: May 20, 2023 Time Seen by Provider: 19:14 Initial Comments Moon is a 57-year-old woman who presents to the emergency room today complaining of chest pain that radiates to her neck and jaw bilaterally starting at about 1730. She has known history of coronary artery disease and had stent placements in March. Dr. Craig is her bilingual loan processor. She notes her blood pressure has been low today with systolic measurements under 100. She has felt dizzy with some lightheadedness and shortness of air. She notes isosorbide dosing was increased 2 weeks ago. She is on aspirin and Plavix and took 81 mg of aspirin before coming to the emergency room. She has tenderness to palpation in the left chest and epigastrium. She notes previously being on Protonix but is not presently using a PPI. She rates her pain as 6.5/10. Allergies and Home Medications Allergies Coded Allergies: Penicillins (Unverified Allergy, Unknown, 02/11/23) Sulfa (Sulfonamide Antibiotics) (Unverified Allergy, Unknown, 02/11/23) pregabalin (Unverified Allergy, Unknown, 02/11/23) succinylcholine (Unverified Allergy, Unknown, 02/11/23) Patient Home Medication List Home Medication List Reviewed: Yes Acetaminophen (Tylenol Extra Strength) 500 Mg Tablet, 1,000 MG PO DAILY, (Reported) Entered as Reported by: MIQUEL LAI on 03/20/23 1126 Albuterol Sulfate (Ventolin Hfa) 1 Puff Puff, 2 PUFF INH Q6H PRN for SHORTNESS OF BREATH, (Reported) Entered as Reported by: SHASHANK QUINONES on 02/11/23 1748 Alprazolam (Alprazolam) 0.5 Mg Tablet, 0.5 MG PO BID PRN for ANXIETY, (Reported) Entered as Reported by: MIQUEL LAI on 03/20/23 1126 Aspirin (Aspirin EC) 81 Mg Tablet.dr, 81 MG PO DAILY Prescribed by: Cheryl Hendrickson on 03/21/231128 Budesonide/Formoterol Fumarate (Symbicort 160-4.5 Mcg Inhaler) 160 Mcg-4.5 Mcg/Actuation Hfa.aer.ad, 2 PUFF IH DAILY, (Reported) Entered as Reported by: SHASHANK QUINONES on 02/11/231747 Cholecalciferol (Vitamin D3) (Vitamin D3) 25 Mcg (1000 Unit) Capsule, 25 MCG PO DAILY, (Reported) Entered as Reported by: MIQUEL LAI on 03/20/231125 Clopidogrel Bisulfate (Clopidogrel) 75 Mg Tablet, 75 MG PO DAILY Prescribed by: Cheryl Hendrickson on 03/21/231128 Cyanocobalamin (Vitamin B-12) (Vitamin B-12) 1,000 Mcg Tablet, 1,000 MCG PO DAILY, (Reported) Entered as Reported by: MIQUEL LAI on 03/20/231125 Duloxetine HCl (Cymbalta) 60 Mg Capsule.dr, 120 MG PO DAILY, (Reported) Entered as Reported by: SHASHANK QUINONES on 02/11/231747 Elderberry Fruit (Elderberry) 350 Mg Capsule, 350 MG PO DAILY, (Reported) Entered as Reported by: MIQUEL LAI on 03/20/231125 Estradiol (Estradiol) 0.01 % Cream.appl, 1 GM VG 3X WEEKLY, (Reported) Entered as Reported by: MIQUEL LAI on 03/20/231125 Famotidine (Pepcid) 20 Mg Tablet, 20 MG PO BID Prescribed by: LAURA PRECIADO on 03/27/23 1150 Hydrocodone/Acetaminophen (Hydrocodone-Acetamin 5-325 mg) 5 Mg-325 Mg Tablet, 2 EA PO HS, (Reported) Entered as Reported by: SHASHANK QUINONES on 02/11/231747 Isosorbide Mononitrate (Isosorbide Mononitrate ER) 30 Mg Tab.er.24h, 15 MG PO DAILY Prescribed by: Cheryl Hendrickson on 03/21/231128 Liraglutide (Victoza 2-Daniel) 0.6 Mg/0.1 Ml (18 Mg/3 Ml) Pen.injctr, 3 MG SQ DAILY, (Reported) Entered as Reported by: SHASHANK QUINONES on 02/11/231747 Melatonin (Melatonin) 10 Mg Tablet, 10 MG PO HS PRN for SLEEP, (Reported) Entered as Reported by: MIQUEL LAI on 03/20/231125 Meloxicam (Meloxicam) 15 Mg Tablet, 15 MG PO DAILY, (Reported) Entered as Reported by: MIQUEL LAI on 03/20/231125 Metoprolol Succinate (Metoprolol Succinate) 25 Mg Tab.er.24h, 12.5 MG PO DAILY Prescribed by: Cheryl Hendrickson on 03/21/231128 Nicotine (Nicotine Patch) 21-14-7MG Patch.dysq, 14 MG TD DAILY Prescribed by: Cheryl Hendrickson on 03/21/231128 Pantoprazole Sodium (Protonix) 40 Mg Tablet.dr, 40 MG PO DAILY Prescribed by: LAURA PRECIADO on 03/27/23 115 Pantoprazole Sodium (Protonix) 40 Mg Tablet.dr, 40 MG PO DAILY Prescribed by: LAURA PRECIADO on 05/20/232205 Polyethylene Glycol 3350 (Miralax) 17 Gram Powd.pack, 17 GM PO DAILY, (Reported) Entered as Reported by: SHASHANK QUINONES on 02/11/231747 Quetiapine Fumarate (Quetiapine Fumarate) 100 Mg Tablet, 100 MG PO HS, (Reported) Entered as Reported by: MIQUEL LAI on 03/20/231125 Rosuvastatin Calcium (Rosuvastatin Calcium) 20 Mg Tablet, 20 MG PO HS Prescribed by: Cheryl Hendrickson on 03/21/231128 Tizanidine HCl (Tizanidine HCl) 4 Mg Tablet, 8 MG PO HS, (Reported) Entered as Reported by: MIQUEL LAI on 03/20/231125 Tramadol HCl (Tramadol HCl) 50 Mg Tablet, 100 MG PO DAILY, (Reported) Entered as Reported by: SHASHANK QUINONES on 02/11/231747 Tramadol HCl (Tramadol HCl) 50 Mg Tablet, 100 MG PO 1300 PRN for PAIN-MODERATE (5-7), (Reported) Entered as Reported by: MIQUEL LAI on 03/20/231125 Trazodone HCl (Trazodone HCl) 50 Mg Tablet, 100 MG PO HS, (Reported) Entered as Reported by: MIQUEL LAI on 03/20/23 1126 Review of Systems Review of Systems Constitutional: no symptoms reported EENTM: No Symptoms Reported Respiratory: See HPI Cardiovascular: See HPI Gastrointestinal: See HPI Genitourinary: No Symptoms Reported Musculoskeletal: no symptoms reported Skin: no symptoms reported Psychiatric/Neurological: No Symptoms Reported Endocrine: No Symptoms Reported Hematologic/Lymphatic: No Symptoms Reported Past Qmbslfw-Iqpspj-Prbbdp Hx Patient Social History Tobacco Use?: No Use of E-Cig and/or Vaping dev: No Substance use?: No Alcohol Use?: No Pt feels they are or have been: No Immunizations Up To Date First/Initial COVID19 Vaccinat: NO Second COVID19 Vaccination Rodrigo: NO Third COVID19 Vaccination Date: NO Seasonal Allergies Seasonal Allergies: Yes Past Medical History Surgery/Hospitalization HX: Hypertension, hyperlipidemia, COPD, obstructive sleep apnea, fibromyalgia,depression, cholecystectomy, hysterectomy, section, STENT X1 Surgeries: Yes (HIATAL HERNIA/HEART CATH) Abdominal, Section, Coronary Stent, Gallbladder, Hysterectomy Respiratory: Yes (OBSTRUCTIVE SLEEP APNEA) Asthma, Sleep Apnea, COPD Currently Using CPAP: No Cardiac: Yes ("WEEPY MITRAL VALVE") Coronary Artery Disease, High Cholesterol, Hypertension Neurological: No CENTERLESS GRINDER History: Hysterectomy Genitourinary: No Gastrointestinal: Yes (gastritis, melanosis coli) Gastrointestinal Bleed, Chronic Constipation, Diverticulosis, Hemorrhoids, Polyps, Hiatal Hernia Musculoskeletal: Yes Fibromyalgia Endocrine: Yes (PRE-DIABETIC) Cancer: No Psychosocial: Yes Depression Integumentary: No Blood Disorders: No Family Medical History No Pertinent Family Hx Physical Exam Vital Signs Vital Signs - First Documented 05/20/23 19:10 Temp 35.6 Pulse 87 Resp 23 B/P (MAP) 105/91 (96) Pulse Ox 97 O2 Delivery Room Air Capillary Refill : Height, Weight, BMI Height: '" Weight: lbs. oz. kg; 40.00 BMI Method: General Appearance: No Apparent Distress, WD/WN HEENT: PERRL/EOMI, Normal ENT Inspection Neck: Normal Inspection; No JVD Respiratory: Lungs Clear, Normal Breath Sounds, No Accessory Muscle Use, No Respiratory Distress, Other (Left anterior chest wall TTP) Cardiovascular: Regular Rate, Rhythm, No Edema, No Gallop, No Murmur Gastrointestinal: Soft; No Distended; Tenderness (epigstric) Extremity: Normal Inspection, Non Tender Neurologic/Psychiatric: Alert, Oriented x3, No Motor/Sensory Deficits, Normal Mood/Affect Skin: Normal Color, Warm/Dry Progress/Results/Core Measures Results/Orders Lab Results Laboratory Tests Test 05/20/23 19:19 05/20/23 19:22 05/20/23 21:21 Range/Units White Blood Count 9.8 4.3-11.0 10^3/uL Red Blood Count 3.74 L 3.80-5.11 10^6/uL Hemoglobin 11.5 11.5-16.0 g/dL Hematocrit 36 35-52 % Mean Corpuscular Volume 96 80-99 fL Mean Corpuscular Hemoglobin 31 25-34 pg Mean Corpuscular Hemoglobin Concent 32 32-36 g/dL Red Cell Distribution Width 11.6 10.0-14.5 % Platelet Count 220 130-400 10^3/uL Mean Platelet Volume 9.7 9.0-12.2 fL Immature Granulocyte % (Auto) 0 % Neutrophils (%) (Auto) 56 42-75 % Lymphocytes (%) (Auto) 33 12-44 % Monocytes (%) (Auto) 7 0-12 % Eosinophils (%) (Auto) 3 0-10 % Basophils (%) (Auto) 0 0-10 % Neutrophils # (Auto) 5.5 1.8-7.8 10^3/uL Lymphocytes # (Auto) 3.3 1.0-4.0 10^3/uL Monocytes # (Auto) 0.7 0.0-1.0 10^3/uL Eosinophils # (Auto) 0.3 0.0-0.3 10^3/uL Basophils # (Auto) 0.0 0.0-0.1 10^3/uL Immature Granulocyte # (Auto) 0.0 0.0-0.1 10^3/uL Prothrombin Time 12.0 L 12.2-14.7 SEC INR Comment 0.9 0.8-1.4 Activated Partial Thromboplast Time 26 24-35 SEC Sodium Level 136 135-145 MMOL/L Potassium Level 4.2 3.6-5.0 MMOL/L Chloride Level 105 98-107 MMOL/L Carbon Dioxide Level 22 21-32 MMOL/L Anion Gap 9 5-14 MMOL/L Blood Urea Nitrogen 10 7-18 MG/DL Creatinine 1.07 0.60-1.30 MG/DL Estimat Glomerular Filtration Rate 61 BUN/Creatinine Ratio 9 Glucose Level 103 70-105 MG/DL Calcium Level 8.8 8.5-10.1 MG/DL Corrected Calcium 8.8 8.5-10.1 MG/DL Magnesium Level 2.1 1.6-2.4 MG/DL Total Bilirubin 0.5 0.1-1.0 MG/DL Aspartate Amino Transf (AST/SGOT) 26 5-34 U/L Alanine Aminotransferase (ALT/SGPT) 16 0-55 U/L Alkaline Phosphatase 92 40-136 U/L Myoglobin 25.5 10.0-92.0 NG/ML Troponin I < 0.028 < 0.028 <0.028 NG/ML Total Protein 7.2 6.4-8.2 GM/DL Albumin 4.0 3.2-4.5 GM/DL Lipase 75 8-78 U/L My Orders Orders - LAURA BRUNO MD Cbc And Automated Diff (05/20/23 19:10) Magnesium (05/20/23 19:10) Chest 1 View, Ap/Pa Only (05/20/23 19:10) Ekg Tracing (05/20/23 19:10) Comprehensive Metabolic Panel (05/20/23 19:10) Myoglobin Serum (05/20/23 19:10) Protime With Inr (05/20/23 19:10) Partial Thromboplastin Time (05/20/23 19:10) O2 (05/20/23 19:10) Monitor-Rhythm Ecg Trace Only (05/20/23 19:10) Ed Iv/Invasive Line Start (05/20/23 19:10) Troponin I Giles (05/20/23 19:10) Ondansetron Injection (Ondansetron Inj (05/20/23 19:30) Lidocaine 2% Viscous 15 Ml (Xylocaine Vi (05/20/23 19:30) Antacid Suspension (Antacid Suspension (05/20/23 19:30) Ns Iv 500 Ml (Ns Iv 500 Ml) (05/20/23 19:30) Lipase (05/20/23 19:20) Pantoprazole Tablet (Pantoprazole Tablet (05/20/23 20:30) Troponin I Lianne (05/20/23 21:30) Iv Push Machine Fastener Ed (05/20/23 ) Medications Given in ED Vital Signs/I&O 05/20/23 05/20/23 19:10 22:13 Temp 35.6 Pulse 87 74 Resp 23 B/P (MAP) 105/91 (96) 130/89 Pulse Ox 97 97 O2 Delivery Room Air Room Air Blood Pressure Mean: 96 Progress Progress Note : Progress Note Patient was interviewed and examined by me. Nitroglycerin was not administered due to patient's marginal blood pressure. Labs were reviewed and interpreted. CBC, CMP, magnesium, troponin, lipase, and coag panels were all normal. Serial troponin was also normal. EKG was negative for ischemia or arrhythmia by my interpretation as noted below. Chest x-ray report was reviewed as noted below. There were no significant acute abnormalities. Because of patient's epigastric tenderness and discontinuation of PPI therapy, patient was treated with a GI cocktail and Zofran. This resolved her pain. Pain did not return prior to discharge. See discharge instructions for further discussion. Initial ECG Impression Date: May 20, 2023 Initial ECG Impression Time: 19:16 Initial ECG Rate: 85 Initial ECG Rhythm: Normal Sinus Initial ECG Intervals: Normal Initial ECG Impression: Normal Comment Normal sinus rhythm with no ST elevation or depression. No abnormal intervals or axis deviation. Diagnostic Imaging Diagonstic Imaging: Xray Plain Films/CT/US/NM/MRI: chest Comments NAME: MOON [facility] REC#: [id number] PT STATUS: REG ER : 1965 PHYSICIAN: LAURA BRUNO MD ADMIT DATE: 05/20/23/ER Signed Date of Exam:05/20/23 CHEST 1 VIEW, AP/PA ONLY PATIENT HISTORY: Chest pain. TECHNIQUE: Single frontal view of the chest. COMPARISON: 03/27/2023. FINDINGS: The lung volumes are normal. No focal consolidation is seen. No large pleural effusion or pneumothorax is seen. The cardiomediastinal silhouette is stable in size and contour. No acute osseous abnormality is seen. IMPRESSION: No acute pulmonary abnormality seen. Dictated by: Dictated on workstation # [id number] Dict: 05/20/231934 Trans: 05/20/232100 [facility] [id number] Interpreted by: OSCAR URBANO MD Electronically signed by: OSCAR URBANO MD 05/20/232100 Departure Impression Primary Impression: Chest pain Qualified Codes: R07.9 - Chest pain, unspecified Additional Impression: Epigastric pain Disposition: HOME, SELF-CARE Condition: Improved Departure-Patient Inst. Decision time for Depature: 22:02 Referrals: VIRGINIA DAVIES APRN (PCP/Family) Primary Care Physician Patient Instructions: Acid reflux (gastroesophageal reflux disease) during , Chest Pain Add. Discharge Instructions: Based on your work-up in the emergency room and response to the "GI cocktail", your pain was likely caused by inflammation of the stomach (gastritis) and/or inflammation of the esophagus) esophagitis. This could be due to several factors including medications you take, diet, acid reflux, etc. Continue taking your usual medications as previously prescribed. Add Protonix (pantoprazole) 40 mg daily back into your medication regimen until you are able to follow-up with your primary care provider. Avoid the following: Eating large meals, eating close to bedtime, caffeine, carbonation, chocolate, citrus fruits and juices, tomato products, tobacco, alcohol, mints, NSAID medications such as ibuprofen or naproxen, spicy foods, fatty/greasy foods, or anything else you know irritate your stomach. If the upper abdominal pain and heartburn becomes persistent and recurrent, you may need further evaluation such as endoscopy (camera scoping of your stomach and esophagus). You may treat acute episodes of pain with Tylenol (acetaminophen) up to 1000 mg every 6 hours as needed. You may also try Tums or generic equivalent. Follow-up with your primary care provider and bilingual loan processor as soon as possible. Return to the emergency room if you have worsening symptoms despite following these instructions. All discharge instructions reviewed with patient and/or family. Voiced understanding. Scripts Pantoprazole Sodium (Protonix) 40 Mg Tablet. 40 MG PO DAILY, #30 TAB Prov: LAURA BRUNO MD 05/20/23 Copy Copies To 1: SIMÓN CRAIG MD Copies To 2: [facility] [place] LAURA BRUNO MD May 20, 2023 19:27
[2023-05-20] MEDS ORDERED: LIDOCAINE 2% VISCOUS 15 ML UDC PO ONE (19:30)
[2023-05-20] MEDS ORDERED: ANTACID SUSPENSION 30 ML UDC PO ONE (19:30)
[2023-05-20] MEDS ORDERED: NS IV 500 ML 500 ML IV ONE (19:30)
[2023-05-20] MEDS ORDERED: ONDANSETRON INJECTION 4 MG/2 ML (SDV) IVP ONE (19:30)
[2023-05-20 19:36] LABS: INR 0.9 (0.8-1.4)
[2023-05-20 19:38] LABS: CALCIUM 8.8 MG/DL (8.5-10.1)
[2023-05-20 19:39] LABS: GLUCOSE 103 MG/DL (70-105); TOTAL PROTEIN 7.2 GM/DL (6.4-8.2)
[2023-05-20 19:40] LABS: CARBON DIOXIDE 22 MMOL/L (21-32)
[2023-05-20 19:41] LABS: BILIRUBIN,TOTAL 0.5 MG/DL (0.1-1.0); CHLORIDE 105 MMOL/L (98-107); POTASSIUM 4.2 MMOL/L (3.6-5.0); SODIUM 136 MMOL/L (135-145)
[2023-05-20 19:42] LABS: ALKALINE PHOSPHATASE 92 U/L (40-136); CREATININE SERUM 1.07 MG/DL (0.60-1.30); GFR ESTIMATED 61
[2023-05-20 19:43] LABS: BUN/CREATININE RATIO 9
[2023-05-20 19:45] LABS: ALANINE AMINOTRANSFERASE 16 U/L (0-55); MAGNESIUM 2.1 MG/DL (1.6-2.4)
--- NOTE | 2023-05-20 19:45 | Diagnostic Imaging Report ---
PATIENT HISTORY: Chest pain. TECHNIQUE: Single frontal view of the chest. COMPARISON: 03/27/2023. FINDINGS: The lung volumes are normal. No focal consolidation is seen. No large pleural effusion or pneumothorax is seen. The cardiomediastinal silhouette is stable in size and contour. No acute osseous abnormality is seen. IMPRESSION: No acute pulmonary abnormality seen. Dictated by: Dictated on workstation # [id number]
[2023-05-20] MEDS ORDERED: PANTOPRAZOLE 40 MG TABLET PO ONE (20:30)
[2023-05-20] MEDS ORDERED: PANT40TA2 PO (22:06)
[2023-05-20 22:13] VITALS: BP 130/89
== END 2023-05-20 22:13 | disposition home or self-care (01) ==
LOC: EDUNIT# 19:06 → ER 19:09
DX: R07.89 Other chest pain (principal); R10.13 Epigastric pain; Z79.02 Long term (current) use of antithrombotics/antiplatelets; Z79.82 Long term (current) use of aspirin
CPT/HCPCS: 36415; 71045; 80053; 83690; 83735; 83874; 84484; 85025; 85610; 85730; 93005; 93041; 96374

== ENCOUNTER 2023-06-06 01:22 | Emergency (ER) | payer OTHER ==
[~2023-06-06] VITALS: Ht 154 cm; Wt 99.4 kg
[2023-06-06 01:35] VITALS: BP 90/62
[2023-06-06 01:36] VITALS: BP 73/47
[2023-06-06] MEDS ORDERED: LACTATED RINGERS 1,000 ML 1,000 ML IV STA (01:42)
--- NOTE | 2023-06-06 01:50 | ED General ---
General Stated Complaint: DIZZY, LOW BP Source of Information: Patient, Old Records Exam Limitations: No Limitations History of Present Illness Date Seen by Provider: Jun 06, 2023 Time Seen by Provider: 01:24 Initial Comments 57yoF with PMH of HTN, DM, CAD coming in due to being light headed and having low blood pressure. She states roughly a month ago her doctor increased her blood pressure medication dosage. She has not felt quite right since then. Specifically, when she stands up, she feels lightheaded. There was worsening tonight, she took her blood pressure at that time, and it was in the 70s systoli c with repeat measurements. She believes she has been drinking fluids. Denies any vomiting, diarrhea, chest pain, shortness of breath, abdominal pain, rash, weakness, numbness, or any other concerns. Allergies and Home Medications Allergies Coded Allergies: Penicillins (Unverified Allergy, Unknown, 02/11/23) Sulfa (Sulfonamide Antibiotics) (Unverified Allergy, Unknown, 02/11/23) pregabalin (Unverified Allergy, Unknown, 02/11/23) succinylcholine (Unverified Allergy, Unknown, 02/11/23) Patient Home Medication List Home Medication List Reviewed: Yes Acetaminophen (Tylenol Extra Strength) 500 Mg Tablet, 1,000 MG PO DAILY, (Reported) Entered as Reported by: MIQUEL LAI on 03/20/23 112 Albuterol Sulfate (Ventolin Hfa) 1 Puff Puff, 2 PUFF INH Q6H PRN for SHORTNESS OF BREATH, (Reported) Entered as Reported by: SHASHANK QUINONES on 02/11/231747 Alprazolam (Alprazolam) 0.5 Mg Tablet, 0.5 MG PO BID PRN for ANXIETY, (Reported) Entered as Reported by: MIQUEL LAI on 03/20/23 112 Aspirin (Aspirin EC) 81 Mg Tablet.dr, 81 MG PO DAILY Prescribed by: Cheryl Hendrickson on 03/21/23 112 Budesonide/Formoterol Fumarate (Symbicort 160-4.5 Mcg Inhaler) 160 Mcg-4.5 Mcg/Actuation Hfa.aer.ad, 2 PUFF IH DAILY, (Reported) Entered as Reported by: SHASHANK QUINONES on 02/11/231747 Cholecalciferol (Vitamin D3) (Vitamin D3) 25 Mcg (1000 Unit) Capsule, 25 MCG PO DAILY, (Reported) Entered as Reported by: MIQUEL LAI on 03/20/231125 Clopidogrel Bisulfate (Clopidogrel) 75 Mg Tablet, 75 MG PO DAILY Prescribed by: Cheryl Hendrickson on 03/21/231128 Cyanocobalamin (Vitamin B-12) (Vitamin B-12) 1,000 Mcg Tablet, 1,000 MCG PO DAILY, (Reported) Entered as Reported by: MIQUEL LAI on 03/20/231125 Duloxetine HCl (Cymbalta) 60 Mg Capsule.dr, 120 MG PO DAILY, (Reported) Entered as Reported by: SHASHANK QUINONES on 02/11/231747 Elderberry Fruit (Elderberry) 350 Mg Capsule, 350 MG PO DAILY, (Reported) Entered as Reported by: MIQUEL LAI on 03/20/231125 Estradiol (Estradiol) 0.01 % Cream.appl, 1 GM VG 3X WEEKLY, (Reported) Entered as Reported by: MIQUEL LAI on 03/20/231125 Famotidine (Pepcid) 20 Mg Tablet, 20 MG PO BID Prescribed by: LAURA PRECIADO on 03/27/23 115 Hydrocodone/Acetaminophen (Hydrocodone-Acetamin 5-325 mg) 5 Mg-325 Mg Tablet, 2 EA PO HS, (Reported) Entered as Reported by: SHASHANK QUINONES on 02/11/231747 Isosorbide Mononitrate (Isosorbide Mononitrate ER) 30 Mg Tab.er.24h, 15 MG PO DAILY Prescribed by: Cheryl Hendrickson on 03/21/231128 Liraglutide (Victoza 2-Daniel) 0.6 Mg/0.1 Ml (18 Mg/3 Ml) Pen.injctr, 3 MG SQ DAILY, (Reported) Entered as Reported by: SHASHANK QUINONES on 02/11/231747 Melatonin (Melatonin) 10 Mg Tablet, 10 MG PO HS PRN for SLEEP, (Reported) Entered as Reported by: MIQUEL LAI on 03/20/231125 Meloxicam (Meloxicam) 15 Mg Tablet, 15 MG PO DAILY, (Reported) Entered as Reported by: MIQUEL LAI on 03/20/231125 Metoprolol Succinate (Metoprolol Succinate) 25 Mg Tab.er.24h, 12.5 MG PO DAILY Prescribed by: Cheryl Hendrickson on 03/21/23 112 Nicotine (Nicotine Patch) 21-14-7MG Patch.dysq, 14 MG TD DAILY Prescribed by: Cheryl Hendrickson on 03/21/23 112 Pantoprazole Sodium (Protonix) 40 Mg Tablet.dr, 40 MG PO DAILY Prescribed by: LAURA PRECIADO on 03/27/23 1150 Pantoprazole Sodium (Protonix) 40 Mg Tablet.dr, 40 MG PO DAILY Prescribed by: LAURA PRECIADO on 05/20/23 220 Polyethylene Glycol 3350 (Miralax) 17 Gram Powd.pack, 17 GM PO DAILY, (Reported) Entered as Reported by: SHASHANK QUINONES on 02/11/23 174 Quetiapine Fumarate (Quetiapine Fumarate) 100 Mg Tablet, 100 MG PO HS, (Reported) Entered as Reported by: MIQUEL LAI on 03/20/231125 Rosuvastatin Calcium (Rosuvastatin Calcium) 20 Mg Tablet, 20 MG PO HS Prescribed by: Cheryl Hendrickson on 03/21/23 112 Tizanidine HCl (Tizanidine HCl) 4 Mg Tablet, 8 MG PO HS, (Reported) Entered as Reported by: MIQUEL LAI on 03/20/231125 Tramadol HCl (Tramadol HCl) 50 Mg Tablet, 100 MG PO DAILY, (Reported) Entered as Reported by: SHASHANK QUINONES on 02/11/231747 Tramadol HCl (Tramadol HCl) 50 Mg Tablet, 100 MG PO 1300 PRN for PAIN-MODERATE (5-7), (Reported) Entered as Reported by: MIQUEL LAI on 03/20/23 112 Trazodone HCl (Trazodone HCl) 50 Mg Tablet, 100 MG PO HS, (Reported) Entered as Reported by: MIQUEL LAI on 03/20/231125 Review of Systems Review of Systems Constitutional: No fever EENTM: no symptoms reported Respiratory: no symptoms reported Cardiovascular: see HPI Gastrointestinal: no symptoms reported Genitourinary: no symptoms reported Musculoskeletal: no symptoms reported Skin: no symptoms reported Psychiatric/Neurological: See HPI Hematologic/Lymphatic: No Symptoms Reported Past [id number] Hx Immunizations Up To Date First/Initial COVID19 Vaccinat: NO Second COVID19 Vaccination Rodrigo: NO Third COVID19 Vaccination Date: NO Seasonal Allergies Seasonal Allergies: Yes Past Medical History Surgery/Hospitalization HX: Hypertension, hyperlipidemia, COPD, obstructive sleep apnea, fibromyalgia,depression, cholecystectomy, hysterectomy, section, STENT X1 Surgeries: Yes (HIATAL HERNIA/HEART CATH) Abdominal, Section, Coronary Stent, Gallbladder, Hysterectomy Respiratory: Yes (OBSTRUCTIVE SLEEP APNEA) Asthma, Sleep Apnea, COPD Currently Using CPAP: No Cardiac: Yes ("WEEPY MITRAL VALVE") Coronary Artery Disease, High Cholesterol, Hypertension Neurological: No FLARE BREAKER History: Hysterectomy Genitourinary: No Gastrointestinal: Yes (gastritis, melanosis coli) Gastrointestinal Bleed, Chronic Constipation, Diverticulosis, Hemorrhoids, Polyps, Hiatal Hernia Musculoskeletal: Yes Fibromyalgia Endocrine: Yes (PRE-DIABETIC) Cancer: No Psychosocial: Yes Depression Integumentary: No Blood Disorders: No Family Medical History No Pertinent Family Hx Physical Exam Vital Signs Vital Signs - First Documented 06/06/23 01:22 Temp 36.1 Pulse 82 Resp 18 B/P (MAP) 112/71 (85) Pulse Ox 97 O2 Delivery Room Air Capillary Refill : Height, Weight, BMI Height: '" Weight: lbs. oz. kg; 40.00 BMI Method: General Appearance: No Apparent Distress, WD/WN Eyes: Bilateral Eye Normal Inspection, Bilateral Eye PERRL HEENT: PERRL/EOMI, Normal ENT Inspection, Pharynx Normal Neck: Full Range of Motion, Normal Inspection, Non Tender, Supple Respiratory: Chest Non Tender, Lungs Clear, Normal Breath Sounds, No Accessory Muscle Use, No Respiratory Distress Cardiovascular: Regular Rate, Rhythm, No Edema, Normal Peripheral Pulses Gastrointestinal: Normal Bowel Sounds, Non Tender, Soft; No Distended, No Guarding Back: Normal Inspection, No CVA Tenderness, No Vertebral Tenderness Extremity: Normal Capillary Refill, Normal Inspection, Normal Range of Motion, Non Tender, No Calf Tenderness, No Pedal Edema Neurologic/Psychiatric: Alert, Oriented x3, No Motor/Sensory Deficits, Normal Mood/Affect, information systems security manager II-XII Norm as Tested, Other (Normal gait) Skin: Normal Color, Warm/Dry Progress/Results/Core Measures Suspected Sepsis SIRS Temperature: Pulse: Respiratory Rate: Laboratory Tests 06/06/23 01:46: White Blood Count 9.2 Blood Pressure / Mean: Laboratory Tests 06/06/23 01:46: Creatinine 0.99, Platelet Count 213, Total Bilirubin 0.3 Results/Orders Lab Results Laboratory Tests Test 06/06/23 01:33 06/06/23 01:46 Range/Units Glucometer 107 70-110 MG/DL White Blood Count 9.2 4.3-11.0 10^3/uL Red Blood Count 3.49 L 3.80-5.11 10^6/uL Hemoglobin 10.5 L 11.5-16.0 g/dL Hematocrit 33 L 35-52 % Mean Corpuscular Volume 96 80-99 fL Mean Corpuscular Hemoglobin 30 25-34 pg Mean Corpuscular Hemoglobin Concent 31 L 32-36 g/dL Red Cell Distribution Width 12.3 10.0-14.5 % Platelet Count 213 130-400 10^3/uL Mean Platelet Volume 9.1 9.0-12.2 fL Immature Granulocyte % (Auto) 0 % Neutrophils (%) (Auto) 61 42-75 % Lymphocytes (%) (Auto) 31 12-44 % Monocytes (%) (Auto) 5 0-12 % Eosinophils (%) (Auto) 3 0-10 % Basophils (%) (Auto) 1 0-10 % Neutrophils # (Auto) 5.6 1.8-7.8 10^3/uL Lymphocytes # (Auto) 2.8 1.0-4.0 10^3/uL Monocytes # (Auto) 0.5 0.0-1.0 10^3/uL Eosinophils # (Auto) 0.2 0.0-0.3 10^3/uL Basophils # (Auto) 0.1 0.0-0.1 10^3/uL Immature Granulocyte # (Auto) 0.0 0.0-0.1 10^3/uL Sodium Level 136 135-145 MMOL/L Potassium Level 4.0 3.6-5.0 MMOL/L Chloride Level 103 98-107 MMOL/L Carbon Dioxide Level 24 21-32 MMOL/L Anion Gap 9 5-14 MMOL/L Blood Urea Nitrogen 13 7-18 MG/DL Creatinine 0.99 0.60-1.30 MG/DL Estimat Glomerular Filtration Rate 67 BUN/Creatinine Ratio 13 Glucose Level 112 H 70-105 MG/DL Calcium Level 8.7 8.5-10.1 MG/DL Corrected Calcium 8.9 8.5-10.1 MG/DL Magnesium Level 2.1 1.6-2.4 MG/DL Total Bilirubin 0.3 0.1-1.0 MG/DL Aspartate Amino Transf (AST/SGOT) 27 5-34 U/L Alanine Aminotransferase (ALT/SGPT) 32 0-55 U/L Alkaline Phosphatase 116 40-136 U/L Total Protein 6.5 6.4-8.2 GM/DL Albumin 3.7 3.2-4.5 GM/DL My Orders Orders - KASI IRBY MD Accucheck Stat ONCE (06/06/23 01:34) Ekg Tracing (06/06/23 01:34) Cbc And Automated Diff (06/06/23 01:42) Comprehensive Metabolic Panel (06/06/23 01:42) Magnesium (06/06/23 01:42) Ed Iv/Invasive Line Start (06/06/23 01:42) Orthostatic Vital Signs (Adult (06/06/23 01:42) Lactated Ringers 1,000 Ml (Lactated Ring (06/06/23 01:42) Chest 1 View Ap/Pa Only (06/06/23 01:42) Vital Signs/I&O 06/06/23 06/06/23 06/06/23 01:22 01:35 01:36 Temp 36.1 Pulse 82 Resp 18 B/P (MAP) 112/71 (85) 90/62 (71) 73/47 (56) Pulse Ox 97 O2 Delivery Room Air Capillary Refill : Point of Care Testing Finger Stick Blood Glucose: 107 Blood Glucose Action Taken: Doctor notified Progress Note : Progress Note 57-year-old female with above history coming in due to dizziness in the setting of low blood pressures at home. ABCs were intact and vitals were stable on presentation. Initial blood pressure here around 112 systolic. Upon standing up, blood pressure dropped to the 70s. This qualifies for orthostatic hypotension. An IV was placed and basic labs were obtained and were significant for hemoglobin near her baseline, normal white blood cell count, normal creatinine, unremarkable electrolytes. She is not having any chest pain and no clinical signs of ACS. Additionally, EKG shows sinus rhythm with no acute ischemic changes. Chest x-ray ordered and interpreted by me showing normal cardiac silhouette, no pneumothorax, no obvious pneumonia. She has no infectious symptoms otherwise including no upper respiratory symptoms, no skin symptoms, and no urinary symptoms. She was given a bolus of IV fluids. Since the symptoms started shortly after increasing her blood pressure medicine, I will recommend that she have parameters set before she takes her blood pressure in the morning, and that she will lower back to her old dose until she follows up with her regular doctor. I believe she is stable for discharge with outpatient follow-up. Her blood pressure did improve after IV fluids. She was sent home with strict return precautions. ECG Initial ECG Impression Date: Jun 06, 2023 Initial ECG Impression Time: 01:37 Initial ECG Rate: 78 Initial ECG Rhythm: Normal Sinus Comment Narrow QRS, normal axis, no STEMI, appears similar to prior EKGs Diagnostic Imaging Diagonstic Imaging: Xray (chest) Departure Impression Primary Impression: Orthostatic dizziness Disposition: 01 HOME, SELF-CARE Condition: Improved Departure-Patient Inst. Decision time for Depature: 02:40 Referrals: VIRGINIA DAVIES APRN (PCP/Family) Primary Care Physician Patient Instructions: Orthostatic Hypotension (DC) Add. Discharge Instructions: Your blood pressure was dropping when you stand up in the ER. The fluids should help with this. We recommend you take your blood pressure in the morning, if the top number is less than 100, we recommend holding off on your blood pressure until it gets higher. The medications that most likely are causing your low blood pressure are the isosorbide mononitrate (most likely culprit since it was started in May), followed by the metoprolol, and lastly the losartan. We recommend going back to your old dose of your blood pressure medicine until you can follow back up with your regular doctor. KASI IRBY MD Jun 06, 2023 01:50
[2023-06-06 01:58] LABS: BASOPHILS # (AUTO) 0.1 10^3/uL (0.0-0.1); BASOPHILS % (AUTO) 1 % (0-10); EOSINOPHILS # (AUTO) 0.2 10^3/uL (0.0-0.3); EOSINOPHILS % (AUTO) 3 % (0-10); HEMATOCRIT 33 % (35-52); HEMOGLOBIN 10.5 g/dL (11.5-16.0); LYMPHOCYTES # (AUTO) 2.8 10^3/uL (1.0-4.0); LYMPHOCYTES % (AUTO) 31 % (12-44); MEAN CORPUSCULAR HEMOGLOBIN 30 pg (25-34); MEAN CORPUSCULAR HGB CONC 31 g/dL (32-36); MEAN CORPUSCULAR VOLUME 96 fL (80-99); MEAN PLATELET VOLUME 9.1 fL (9.0-12.2); MONOCYTES # (AUTO) 0.5 10^3/uL (0.0-1.0); MONOCYTES % (AUTO) 5 % (0-12); NEUTROPHILS # (AUTO) 5.6 10^3/uL (1.8-7.8); NEUTROPHILS % (AUTO) 61 % (42-75); PLATELET COUNT 213 10^3/uL (130-400); WHITE BLOOD COUNT 9.2 10^3/uL (4.3-11.0)
[2023-06-06 02:23] LABS: ALBUMIN 3.7 GM/DL (3.2-4.5); BILIRUBIN,TOTAL 0.3 MG/DL (0.1-1.0); CALCIUM 8.7 MG/DL (8.5-10.1); CREATININE SERUM 0.99 MG/DL (0.60-1.30); MAGNESIUM 2.1 MG/DL (1.6-2.4); TOTAL PROTEIN 6.5 GM/DL (6.4-8.2)
--- NOTE | 2023-06-06 07:11 | Diagnostic Imaging Report ---
CLINICAL INDICATION: Patient with near syncope and hypotension. EXAM: Portable chest x-ray, upright view. COMPARISON: Chest x-ray dated 05/20/2023. FINDINGS: Lungs/pleura: Lungs are clear. There is no pneumothorax. There is no pleural effusion. Mediastinum: Unremarkable. Pulmonary vasculature: Unremarkable. Heart: Cardiac silhouette is upper limits of normal for portable projection. Bones/extrathoracic soft tissue: There are hypertrophic spurs involving the thoracic spine. IMPRESSION: There is no radiographic evidence of acute cardiopulmonary process. Dictated by: Dictated on workstation # [id number]
== END 2023-06-06 02:35 | disposition home or self-care (01) ==
LOC: EDUNIT# 01:22 → ER FS 01:24
DX: R42 Dizziness and giddiness (principal); R03.1 Nonspecific low blood-pressure reading
CPT/HCPCS: 36415; 71045; 80053; 82947; 83735; 85025; 93005